=== PATIENT | female | born 1950 | race Caucasian/White ===

== ENCOUNTER → 2017-07-18 09:24 | Outpatient (CLI) | payer OTHER, SELFPAY ==
[2017-07-18 09:59] LABS: Add Manual Diff / Slide Review NO; Basophils Percent Auto 0.9 % (0-2); Hematocrit 46.4 % (36-46); Lymphocytes Percent Auto 24.4 % (25-40); Mean Corpuscular HGB Conc 34.5 % (30-36); Mean Corpuscular Hemoglobin 33.3 PG (26-34); Mean Corpuscular Volume 96.6 fL (80-100); Monocytes Percent Auto 13.8 % (3-14); Neutrophils Absolute Auto 4700 /uL (3000-5900); Neutrophils Percent Auto 58.9 % (50-75); Platelet Count 193 X10^3/uL (150-400); Red Cell Distribution Width 13.3 % (11.6-14.8); White Blood Cell Count 7.9 X10^3/uL (4.5-11.0)
[2017-07-18 10:28] LABS: HEMOLYSIS < 15 (0-50); Iron 214 ug/dL (37-170)
[2017-07-18 10:38] LABS: Percent Iron Saturation 49 % (15-50); Total Iron Binding Capacity 433 ug/mL (265-497); Transferrin 342 mg/dL (206-381)
[2017-07-18 10:44] LABS: Free T3, Triiodothyronine Free 3.74 pg/mL (2.77-5.27); Free T4, Direct Thyroxine 0.57 ng/dL (0.78-2.19)
[2017-07-18 10:58] LABS: Thyroid Stimulating Hormone 4.39 uIU/mL (0.47-4.68)
[2017-07-18 11:29] LABS: Ferritin 71.8 ng/mL (11.1-264)
[2017-07-18 13:01] LABS: Erythrocyte Sedimentation Rate 4 MM/HR (0-20)
== END ==
PROVIDERS: PCP Internal Medicine; Visit Provider Physician Assistant Medical
DX: L65.0 Telogen effluvium (principal); L40.8 Other psoriasis; L81.0 Postinflammatory hyperpigmentation
CPT/HCPCS: 36415; 82728; 83540; 83550; 84439; 84443; 84481; 85025; 85651

== ENCOUNTER → 2018-03-02 11:27 | Outpatient (CLI) | payer OTHER, SELFPAY ==
--- NOTE | 2018-03-02 | DI.MG.S_ITS ---
BILATERAL DIGITAL SCREENING MAMMOGRAM 3D/2D WITH CAD: 03/02/2018 CLINICAL: Routine screening. Family history of breast cancer. Baseline exam. Comparison is made to exam dated: 08/17/2012 mammogram - [facility]. The tissue of both breasts is predominantly fatty. Current study was also evaluated with a Computer Aided Detection (CAD) system. There is 0.3 cm oval equal density focal asymmetry with a circumscribed margin in the right breast at 6 o'clock anterior depth. No other significant masses, calcifications, or other findings are seen in either breast. IMPRESSION: INCOMPLETE: NEEDS ADDITIONAL IMAGING EVALUATION The 0.3 cm oval equal density focal asymmetry in the right breast is indeterminate. Mediolateral and spot compression views as well as additional views with possible ultrasound are recommended. This exam was interpreted at Station ID: [id number]. NOTE: For mammograms, a report in lay terms will be sent to the patient. Approximately 15% of breast malignancies will not be visualized mammographically. In the management of a palpable breast mass, a negative mammogram must not discourage biopsy of a clinically suspicious lesion. Electronically Signed By: Shawn ibarra/fritz:03/08/2018 10:56:01 letter sent: Additional Imaging Needed ACR BI-RADS Category 0: Incomplete 3340F
[2018-03-02 12:21] LABS: Alanine Aminotransferase 26 IU/L (9-52); Albumin 4.2 g/dL (3.5-5.0); Albumin Globulin Ratio 1.3 (1.0-2.8); Alkaline Phosphatase 84 U/L (38-126); Aspartate Aminotransferase 37 IU/L (14-36); BUN Creatinine Ratio 23.8 (6-22); Bilirubin Total 0.7 mg/dL (0.2-1.3); Blood Urea Nitrogen 19 mg/dL (7-17); Calcium 9.7 mg/dL (8.4-10.2); Carbon Dioxide 29 mmol/L (22-32); Chloride 101 mmol/L (98-107); Cholesterol 128 mg/dL (140-199); Estimated Glomerular Filt Rate > 60.0 mL/min (>60); Globulin 3.2 g/dL (1.7-4.1); Glucose 106 mg/dL (80-110); HDL Cholesterol 64 mg/dL (40-60); HEMOLYSIS 25 (0-50); LDL Cholesterol Calculated 40 mg/dL (<100); Potassium 3.6 mmol/L (3.4-5.1); Sodium 141 mmol/L (137-145); Total Protein 7.4 g/dL (6.3-8.2); Triglycerides 122 mg/dL (35-150)
[2018-03-02 13:13] LABS: Hep C Virus Ab w/Reflex Quant NEGATIVE s/c (NEGATIVE)
== END ==
PROVIDERS: PCP Internal Medicine; Visit Provider Internal Medicine
DX: Z12.31 Encounter for screening mammogram for malignant neoplasm of breast (principal); Z80.3 Family history of malignant neoplasm of breast; Z00.00 Encounter for general adult medical examination without abnormal findings; I10 Essential (primary) hypertension
CPT/HCPCS: 36415; 77063; 77067; 80053; 80061; 86803

== ENCOUNTER → 2018-04-11 12:56 | Outpatient (CLI) | payer OTHER, SELFPAY ==
--- NOTE | 2018-04-11 | DI.MG.S_ITS ---
UNILATERAL RIGHT DIGITAL DIAGNOSTIC MAMMOGRAM 3D/2D WITH ADDITIONAL VIEWS: 04/11/2018 CLINICAL: Additional evaluation requested from prior study. Comparison is made to exams dated: 03/02/2018 mammogram - [facility] and 08/17/2012 mammogram - [facility]. The tissue of right breast is predominantly fatty. There is a 3 mm oval equal density asymmetry with a circumscribed margin in the right breast anterior depth central to the nipple seen on the craniocaudal view only. This is seen in additional views. No other significant masses or calcifications are seen in the breast. There has been no significant interval change. IMPRESSION: INCOMPLETE: NEEDS ADDITIONAL IMAGING EVALUATION The 3 mm oval equal density asymmetry in the right breast likely represents fibroglandular tissue and is indeterminate. Ultrasound was performed immediately following this exam. A follow-up mammogram in 6 months is recommended to demonstrate stability. This exam was interpreted at Station ID: [id number]. NOTE: For mammograms, a report in lay terms will be sent to the patient. Approximately 15% of breast malignancies will not be visualized mammographically. In the management of a palpable breast mass, a negative mammogram must not discourage biopsy of a clinically suspicious lesion. Electronically Signed By: Ama armijo/fritz:04/11/2018 18:54:49 ACR BI-RADS Category 0: Incomplete [id number]
--- NOTE | 2018-04-11 | DI.US.S_ITS ---
LIMITED ULTRASOUND OF RIGHT BREAST: 04/11/2018 CLINICAL: Patient returns today to evaluate a density in the right breast. Comparison is made to exams dated: 04/11/2018 mammogram, 03/02/2018 mammogram - [facility], and 08/17/2012 mammogram - [facility]. Ultrasound of the right breast 5-7 o'clock region was performed. No abnormalities were seen sonographically in the right breast. No sonographic abnormalities to correspond to mammogram. IMPRESSION: PROBABLY BENIGN Mammographic finding likely represents normal glandular tissue. A follow-up mammogram in 6 months is recommended to demonstrate stability. This exam was interpreted at Station ID: [id number]. Electronically Signed By: Ama armijo/fritz:04/11/2018 18:58:27 letter sent: Followup Recommended Ultrasound BI-RADS: 3 Probably benign
== END ==
PROVIDERS: PCP Internal Medicine; Visit Provider Internal Medicine
DX: R92.8 Other abnormal and inconclusive findings on diagnostic imaging of breast (principal); N64.89 Other specified disorders of breast; M85.851 Other specified disorders of bone density and structure, right thigh; Z78.0 Asymptomatic menopausal state; F17.200 Nicotine dependence, unspecified, uncomplicated
CPT/HCPCS: 76642; 77065; 77080; G0279

== ENCOUNTER → 2019-03-12 10:03 | Outpatient (CLI) | payer OTHER, SELFPAY ==
--- NOTE | 2019-03-12 | DI.MG.S_ITS ---
BILATERAL DIGITAL DIAGNOSTIC MAMMOGRAM 3D/2D: 03/12/2019 CLINICAL: Late short term follow up, due bilateral. Comparison is made to exams dated: 04/11/2018 mammogram and 03/02/2018 mammogram - [facility]. The tissue of both breasts is predominantly fatty. There is a 3 mm oval equal density asymmetry with a circumscribed margin in the right breast anterior depth central to the nipple seen on the craniocaudal view only has not significantly changed. A possible correlate is seen in the inferior right breast on the lateral view. No other significant masses, calcifications, or other findings are seen in either breast. IMPRESSION: PROBABLY BENIGN The 3 mm oval equal density asymmetry in the right breast has remained stable for one year and is probably benign. No sonographic correlate seen on prior evaluation. A follow-up mammogram in 12 months is recommended. This exam was interpreted at Station ID: [id number]. NOTE: For mammograms, a report in lay terms will be sent to the patient. Approximately 15% of breast malignancies will not be visualized mammographically. In the management of a palpable breast mass, a negative mammogram must not discourage biopsy of a clinically suspicious lesion. Electronically Signed By: Alec Lan M.D. aty/:03/12/2019 10:51:58 letter sent: Followup Recommended ACR BI-RADS Category 3: Probably benign [id number]
== END ==
PROVIDERS: PCP Internal Medicine; Visit Provider Internal Medicine
DX: R92.8 Other abnormal and inconclusive findings on diagnostic imaging of breast (principal); N64.89 Other specified disorders of breast
CPT/HCPCS: 77066; G0279

== ENCOUNTER → 2020-06-09 13:08 | Outpatient (CLI) | payer OTHER, SELFPAY ==
--- NOTE | 2020-06-09 | DI.MRI.S_ITS ---
PROCEDURE: MR LUMBAR SPINE WO CON INDICATIONS: SPINAL STENOSIS, LUMBAR REGION TECHNIQUE: Noncontrast sagittal T1 spin echo and T2 fast echo, sagittal STIR, axial T1 and T2 fast spin echo through the lumbar spine. In cases with scoliosis, additional coronal T2 fast spin echo may be performed. COMPARISON: None. FINDINGS: Image quality: Excellent. Alignment and Curvature: Trace retrolisthesis of L2 on L3. Bone Marrow: Marrow is of normal overall signal. No acute vertebral body compression fractures. Spinal Cord: Conus medullaris terminates at the L1-L2 level. Visualized cord demonstrates normal signal and size. Paraspinous Soft Tissues: No paravertebral masses. Discs: [id number] desiccation is present from L3-4 through L5-S1, moderate at L2-3. L1-L2: Mild disc bulge without spinal stenosis or foraminal narrowing. Mild facet and ligamentum flavum hypertrophy as well as epidural lipomatosis. L2-L3: Mild disc bulge with minimal canal narrowing. Mild bilateral foraminal narrowing with facet and ligamentum flavum hypertrophy. Mild epidural lipomatosis. L3-L4: Mild disc bulge with minimal to mild canal narrowing. Qjlb-si-[id number] bilateral foraminal narrowing with facet and ligamentum flavum hypertrophy. Epidural lipomatosis is present. L4-L5: Mild disc bulge with mild spinal stenosis. Mild to moderate bilateral foraminal narrowing with facet and ligamentum flavum hypertrophy. Epidural lipomatosis is present. L5-S1: Mild disc bulge without spinal stenosis. Moderate left and moderate to severe right foraminal narrowing with facet and ligamentum flavum hypertrophy. IMPRESSION: 1. Multilevel disc bulges. 2. Overall mild to moderate foraminal narrowing with moderate to severe at L5-S1 secondary to facet/ligamentum flavum arthropathy. 3. Multilevel overall minimal to mild spinal stenosis secondary to disc bulge with contributing effect of facet/ligamentum flavum arthropathy as well as epidural lipomatosis. Dictated by: Yumiko Salazar M.D. on 06/09/2020 at 15:46 Approved by: Yumiko Salazar M.D. on 06/09/2020 at 15:54
== END ==
PROVIDERS: PCP Internal Medicine; Referring Provider Internal Medicine; Visit Provider Internal Medicine
DX: M48.07 Spinal stenosis, lumbosacral region (principal); M48.061 Spinal stenosis, lumbar region without neurogenic claudication; M51.26 Other intervertebral disc displacement, lumbar region; M51.27 Other intervertebral disc displacement, lumbosacral region
CPT/HCPCS: 72148

== ENCOUNTER → 2020-06-17 12:43 | Outpatient (CLI) | payer OTHER, SELFPAY ==
--- NOTE | 2020-06-17 | DI.MG.S_ITS ---
BILATERAL DIGITAL DIAGNOSTIC MAMMOGRAM 3D/2D SHORT-TERM FOLLOW-UP: 06/17/2020 CLINICAL: Short term follow up of the right breast, due for bilateral imaging. Comparison is made to exams dated: 03/12/2019 mammogram, 04/11/2018 mammogram, and 03/02/2018 mammogram - [facility]. The tissue of both breasts is predominantly fatty. There is a stable 3 mm oval asymmetry in the right breast at 6 o'clock anterior depth. No other significant masses, calcifications, or other findings are seen in either breast. Mammograms are otherwise stable. IMPRESSION: BENIGN The stable 3 mm oval asymmetry in the right breast is possilby a lymph node, has been stable for over two years and is therfore benign. There is no mammographic evidence of malignancy. Return to annual mammogram screening schedule is recommended. Findings and recommendations were conveyed to the patient at time of exam. This exam was interpreted at Station ID: [id number]. NOTE: For mammograms, a report in lay terms will be sent to the patient. Approximately 15% of breast malignancies will not be visualized mammographically. In the management of a palpable breast mass, a negative mammogram must not discourage biopsy of a clinically suspicious lesion. Electronically Signed By: Ama armijo/:06/17/2020 13:28:50 letter sent: Normal Exam ACR BI-RADS Category 2: Benign Finding(s) 3342F
--- NOTE | 2020-06-17 13:12 | DI.RAD.S_ITS ---
PROCEDURE: XR LUMBAR SPINE MIN 4V INDICATIONS: BACK PAIN TECHNIQUE: 5 views of the lumbar spine were acquired, including bilateral oblique views. COMPARISON: None. FINDINGS: Bones: No fracture. Multilevel spondylosis/endplate changes. Diffuse facet arthropathy. Grade 1 anterolisthesis of L4 on L5. Mild narrowing of the L2-L3 and L5-S1 disc space. Remaining disc spaces appear preserved. Soft tissues: Nonspecific 5 mm calcification projecting in the left abdomen at the level of L3-L4 Oblique images: No pars defects. IMPRESSION: Lumbar spondylosis as above, and grade 1 anterolisthesis of L4 on L5. Diffuse facet arthropathy. Dictated by: Paolo New M.D. on 06/17/2020 at 14:37 Approved by: Paolo New M.D. on 06/17/2020 at 14:39
== END ==
PROVIDERS: PCP Internal Medicine; Referring Provider Physical Medicine & Rehabilitation; Visit Provider Internal Medicine
DX: R92.8 Other abnormal and inconclusive findings on diagnostic imaging of breast (principal); M47.816 Spondylosis without myelopathy or radiculopathy, lumbar region; M51.26 Other intervertebral disc displacement, lumbar region
CPT/HCPCS: 72110; 77066; G0279

== ENCOUNTER → 2020-06-29 12:51 | Outpatient (CLI) | payer OTHER, SELFPAY ==
[2020-06-29 15:03] LABS: COVID19 -Nasal RAPID Negative (Negative)
== END ==
PROVIDERS: PCP Internal Medicine; Visit Provider Physical Medicine & Rehabilitation
DX: Z20.822 Contact with and (suspected) exposure to COVID-19 (principal)
CPT/HCPCS: 87635; C9803

== ENCOUNTER 2020-06-30 12:55 | Outpatient (CLI) | payer OTHER, SELFPAY ==
[2020-06-30] VITALS (9 sets, daily range): BP systolic 95–137; BP diastolic 53–71; PULSE 69–85; RESP 10–23; TEMP 36.2; O2SAT 93–97
--- NOTE | 2020-06-30 13:02 | DI.RAD.S_ITS ---
PROCEDURE: PAIN L/SI FACET INJ/BLK 1STL INDICATIONS: SPONDYLOSIS COMPARISON: [facility], CR, XR LUMBAR SPINE MIN 4V, 06/17/2020, 13:12. FINDINGS: Fluoroscopic spot filming was performed to verify placement of spinal needles at the right L3-L4, L4-L5, and L5-S1 level(s), as labeled on the films. Appropriate location(s) of the needle tip(s) was confirmed by injection of iodinated contrast. IMPRESSION: Intraprocedural examination within normal limits. Dictated by: Joseph Mcnamara M.D. on 06/30/2020 at 13:23 Approved by: Joseph Mcnamara M.D. on 06/30/2020 at 13:24
[2020-06-30] MEDS: fentaNYL 100 MCG/2 ML INJ 50 MCG IV (13:33)
[2020-06-30] MEDS: MIDAZOLAM 5 MG/5 ML VIAL IV (13:33)
[2020-06-30] MEDS: IOPAMIDOL 15 ML VIAL 3 ML INJ (13:36)
[2020-06-30] MEDS: BETAMETHASONE 30 MG/5 ML MDV 12 MG INJ (13:37)
[2020-06-30] MEDS: LIDOCAINE 1% 20 ML 10 ML INJ (13:37)
[2020-06-30] MEDS: BUPIVACAINE 0.5% (PF) VIAL 5 ML INJ (13:37)
--- NOTE | 2020-06-30 13:49 | P.PCN_ITS ---
Date/Time/Diagnoses Date of procedure: 06/30/20 Time of procedure: 13:49 Pre-procedure diagnosis: 1. FACET ARTHROPATHY, 2. AXIAL LBP, 3. MULTILEVEL DDD Post-procedure diagnosis: same Procedure Notes Procedure: 1. FLUOROSCOPICALLY GUIDED CONTRAST CONTROLLED FACET JOINT INJECTIONS RIGHT L3/4, L4/5, L5/S1 Indications: Meghan is referred by Dr. Knight for treatment of Axial LBP Physician: Jong Jhaveri Total Fluoroscopy time (seconds): 8 Total sedation minutes: 12 Complications: none Procedure in detail & Post-procedure care: FINDINGS Multilevel Facet Arthropathy with Clinically significant axial LBP DESCRIPTION OF PROCEDURE Fluoroscopically guided, contrast-controlled right L3/4, L4/5, L5/S1 facet joint injections. Following review of allergy and review of potential side effects and complications, including, but not necessarily limited to, infection, allergic reaction, local tissue breakdown, stroke, temporary or permanent nerve injury, paralysis, and possible , the patient indicated that the patient understood and agreed to proceed. An informed consent document was signed by the patient, witnessed by a nurse, and placed in the patient's chart. Additionally, other treatment options including medications, modalities, and physical therapy were reviewed with the patient. After review of previous anaesthesic history and IV conscious sedation the patie nt was deemed safe to proceed with today?s procedure with IV conscious sedation as ASA class II designation. Safety time-out was performed to confirm patient ID, procedure to be performed and site of procedure. IV sedation was accomplished with a combination of 2mg of Versed and 50mcg of Fentanyl was administered by the RN after DO order, titrated to patient comfort during the course of the procedure while the patient remained responsive to all verbal commands. In the prone position, following sterile prep and drape of the lumbar region, the posterior aspect of the right L3/4, L4/5, L5/S1 facet joints were identified fluoroscopically. The skin was anesthetized via a 25-gauge 1.5-inch needle with 1% lidocaine solution into the corresponding facet joints. At this point, a 22- gauge 3.5-inch spinal needle was atraumatically introduced and advanced under fluoroscopic guidance into the corresponding facet joints. Following negative aspiration, injections of approximately 0.2-cc of Isovue 200 confirmed interarticular placement without vascular uptake. Radiological data, including multiple fluoroscopic views of the lumbosacral spine, reveal a spinal needle at the right L3/4, L4/5, L5/S1 facet joints. Subsequent views show flow of contrast material both superiorly and inferiorly within the joint space without vascular or intrathecal uptake. At this point, a total of 0.5cc including a mixture of 0.25cc Marcaine and 0.25cc betamethasone was injected without complication into each of the corresponding facet joints. The procedure tolerated the procedure well without signs or symptoms of complications prior to transfer to the recovery area continued monitoring without incident. The patient was then transferred to the recovery area where they were observed for an appropriate period of time after the injection. The patient reported a VAS score of 7 prior to the procedure and a post-procedure VAS of 0. POST OP INSTRUCTIONS The patient was provided a Pain Log to continue to record their response to the target-specific procedure prior to follow-up visit with their referring physician. Additionally, specific post-injection care instructions and a contact number to our office were provided if concerns arise regarding possible complications associated with the procedure are suspected.
== END 2020-06-30 14:11 | disposition home or self-care (01) ==
LOC: RAD 13:02
PROVIDERS: PCP Internal Medicine; Referring Provider Physical Medicine & Rehabilitation; Visit Provider Physical Medicine & Rehabilitation
DX: M47.816 Spondylosis without myelopathy or radiculopathy, lumbar region (principal); M47.817 Spondylosis without myelopathy or radiculopathy, lumbosacral region; M51.36 Other intervertebral disc degeneration, lumbar region; M51.37 Other intervertebral disc degeneration, lumbosacral region; M54.5 Low back pain
CPT/HCPCS: 64493; 64494; 64495; 99152; J0702; J2250; J3010

== ENCOUNTER → 2020-10-12 08:04 | Outpatient (CLI) | payer OTHER, SELFPAY ==
[2020-10-12 12:54] LABS: COVID19 -Nasal RAPID Negative (Negative)
== END ==
PROVIDERS: PCP Internal Medicine; Visit Provider Physical Medicine & Rehabilitation
DX: Z20.822 Contact with and (suspected) exposure to COVID-19 (principal)
CPT/HCPCS: 87635; C9803

== ENCOUNTER 2020-10-13 09:42 | Outpatient (CLI) | payer OTHER, SELFPAY ==
[2020-10-13] VITALS (7 sets, daily range): BP systolic 118–140; BP diastolic 61–79; PULSE 87–98; RESP 11–21; TEMP 37.1; O2SAT 96–98
--- NOTE | 2020-10-13 09:43 | DI.RAD.S_ITS ---
PROCEDURE: PAIN L/S TRANSFORAMINAL INJECT INDICATIONS: SPONDYLOSIS COMPARISON: [facility], , PAIN L/SI FACET INJ/BLK 1STL, 06/30/2020, 13:39. FINDINGS: Fluoroscopic spot filming was performed to verify placement of a spinal needle at the L4-L5 level, as labeled on the films. Appropriate location of the needle tip was confirmed by injection of iodinated contrast. IMPRESSION: Intraprocedural examination within normal limits. Dictated by: Joseph Mcnamara M.D. on 10/13/2020 at 11:10 Approved by: Joseph Mcnamara M.D. on 10/13/2020 at 11:10
[2020-10-13] MEDS: MIDAZOLAM 5 MG/5 ML VIAL IV (10:25)
[2020-10-13] MEDS: BUPIVACAINE 0.25% (PF) VIAL 2 ML INJ (10:38)
[2020-10-13] MEDS: IOPAMIDOL 15 ML VIAL 3 ML INJ (10:38)
[2020-10-13] MEDS: BETAMETHASONE 30 MG/5 ML MDV 6 MG INJ (10:39)
[2020-10-13] MEDS: DEXAMETHASONE 10 MG/ML VIAL 20 MG INJ (10:39)
--- NOTE | 2020-10-13 10:49 | P.PCN_ITS ---
Date/Time/Diagnoses Date of procedure: 10/13/20 Time of procedure: 10:49 Pre-procedure diagnosis: 1. FORAMINAL STENOSIS WITH LE SYMPTOMS Post-procedure diagnosis: same Procedure Notes Procedure: 1. FLUOROSCOPICALLY GUIDED CONTRAST CONTROLLED TRANSFORAMINAL EPIDURAL STEROID INJECTION - RIGHT L4/5 TFESI Indications: Meghan is referred by Dr. Knight for treatment of Foraminal Stenosis with Right LE Symptoms Physician: Jong Jhaveri Total Fluoroscopy time (seconds): 10 Total sedation minutes: 15 Complications: none Procedure in detail & Post-procedure care: FINDINGS Foraminal Nerve Root Compression secondary to disc disease and facet hypertrophy DESCRIPTION OF PROCEDURE Following review of allergy and review of potential side effects and complications, including, but not necessarily limited to, infection, allergic reaction, local tissue breakdown, stroke, temporary or permanent nerve injury, paralysis, and possible , the patient indicated that the patient understood and agreed to proceed. An informed consent document was signed by the patient, witnessed by a nurse, and placed in the patient's chart. Additionally, other treatment options including medications, modalities, and physical therapy were reviewed with the patient. After review of previous anaesthesic history and IV conscious sedation the patient was deemed safe to proceed with today?s procedure with IV conscious sedation as ASA class II designation. Safety time-out was performed to confirm patient ID, procedure to be performed and site of procedure. IV sedation was accomplished with a combination of 3mg of Versed was administered by the RN after DO order, titrated to patient comfort during the course of the procedure while the patient remained responsive to all verbal commands. In the prone position following sterile prep and drape of the lumbar region, the right L4/5 posterior neuroforamen was identified fluoroscopically. The skin was anesthetized via a 25-gauge 1.5-inch needle with 1% lidocaine solution. At this point, a 25-gauge 3.5-inch spinal needle was atraumatically introduced and advanced under fluoroscopic guidance through the posterior right L4/5 neuroforamen to approximately the anterior aspect of the canal. Depth was confirmed on lateral view. Following negative aspiration, injection of approximately 1.5cc of Isovue 200 under live fluoroscopy in the AP view confi rmed excellent flow along the nerve root, into the epidural space without vascular or intrathecal uptake observed Radiological data, including multiple fluoroscopic views of the lumbosacral spine, reveal a spinal needle at the right L4/5 posterior neuroforamen. Subsequent views show flow of contrast material flowing superiorly and inferiorly along the nerve root confirming epidural flow. Subsequently, a test dose of 1.5 cc of 1% lidocaine solution was administered and patient was observed for two minutes for signs or symptoms of complications, including abdominal pain, shortness of breath, bilateral upper or lower extremity weakness, nausea and vomiting, prior to steroid injection. At this point, a total of 3cc or 20mg of dexamethasone and 6mg of betamethasone was injected without incident. The procedure tolerated the procedure well without signs or symptoms of complications prior to transfer to the recovery area continued monitoring without incident. The patient was then transferred to the recovery area where they were observed for an appropriate time after the injection. The patient reported a VAS score of 7 prior to the procedure and a post- procedure VAS of 0. POST OP INSTRUCTIONS The patient was provided a Pain Log to continue to record their response to the target-specific procedure prior to follow-up visit with their referring phy sician. Additionally, specific post-injection care instructions and a contact number to our office were provided if concerns arise regarding possible complications associated with the procedure are suspected.
== END 2020-10-13 11:00 | disposition home or self-care (01) ==
LOC: RAD 09:43
PROVIDERS: PCP Internal Medicine; Referring Provider Physical Medicine & Rehabilitation; Visit Provider Physical Medicine & Rehabilitation
DX: M48.061 Spinal stenosis, lumbar region without neurogenic claudication (principal); M51.16 Intervertebral disc disorders with radiculopathy, lumbar region
CPT/HCPCS: 64483; 99152; J0702; J1100; J2250; J3010

== ENCOUNTER → 2021-02-22 11:40 | Outpatient (CLI) | payer OTHER, SELFPAY ==
[2021-02-22 14:09] LABS: COVID19 -Nasal RAPID Negative (Negative)
== END ==
PROVIDERS: PCP Internal Medicine; Referring Provider Physical Medicine & Rehabilitation; Visit Provider Physical Medicine & Rehabilitation
DX: Z20.822 Contact with and (suspected) exposure to COVID-19 (principal)
CPT/HCPCS: 87635; C9803

== ENCOUNTER 2021-02-23 09:08 | Outpatient (CLI) | payer OTHER, SELFPAY ==
[2021-02-23] VITALS (11 sets, daily range): BP systolic 94–140; BP diastolic 46–84; PULSE 70–76; RESP 10–21; TEMP 36.7; O2SAT 93–98
--- NOTE | 2021-02-23 09:10 | DI.RAD.S_ITS ---
PROCEDURE: PAIN L/SI FACET INJ/BLK 1STL INDICATIONS: SPONDYLOSIS COMPARISON: [facility], , PAIN L/SI FACET INJ/BLK 1STL, 06/30/2020, 13:39. FINDINGS: Fluoroscopic spot filming was performed to verify placement of spinal needles at the right L4-L5 and L5-S1 facets level(s), as labeled on the films. Appropriate location(s) of the needle tip(s) was confirmed by injection of iodinated contrast. IMPRESSION: Access needles localized to the the right L4-L5 and L5-S1 facet joints. Dictated by: Kelli Braden MD, PhD on 02/23/2021 at 16:03 Approved by: Kelli Braden MD, PhD on 02/23/2021 at 16:04
--- NOTE | 2021-02-23 10:12 | DI.RAD.S_ITS ---
PROCEDURE: PAIN SI JOINT INJECTION INDICATIONS: SACROILIAC JOINT DISORDER COMPARISON: None. FINDINGS: Fluoroscopic spot filming was performed to verify placement of spinal needles at the inferior margin of the right sacroiliac joint level(s), as labeled on the films. Appropriate location(s) of the needle tip(s) was confirmed by injection of iodinated contrast. IMPRESSION: Access needle localizes to the inferior margin of the right sacroiliac joint. Dictated by: Kelli Braden MD, PhD on 02/23/2021 at 15:54 Approved by: Kelli Braden MD, PhD on 02/23/2021 at 15:58
[2021-02-23] MEDS: fentaNYL 100 MCG/2 ML INJ 50 MCG IV (10:22)
[2021-02-23] MEDS: IOPAMIDOL 15 ML VIAL 3 ML INJ (10:27)
[2021-02-23] MEDS: BETAMETHASONE 30 MG/5 ML MDV 12 MG INJ (10:28)
[2021-02-23] MEDS: BUPIVACAINE 0.5% (PF) VIAL 5 ML INJ (10:28)
[2021-02-23] MEDS: MIDAZOLAM 5 MG/5 ML VIAL IV (10:32)
--- NOTE | 2021-02-23 10:43 | P.PCN_ITS ---
Date/Time/Diagnoses Date of procedure: 02/23/21 Time of procedure: 10:43 Pre-procedure diagnosis: 1. FACET ARTHROPATHY, 2. AXIAL LBP, 3. MULTILEVEL DDD Post-procedure diagnosis: same Procedure Notes Procedure: 1. FLUOROSCOPICALLY GUIDED CONTRAST CONTROLLED FACET JOINT INJECTIONS RIGHT L4/5, L5/S1 Indications: Meghan is referred by Dr. Guzman for treatment of Axial LBP Physician: Jong Jhaveri Total Fluoroscopy time (seconds): 11 Total sedation minutes: 16 Complications: none Procedure in detail & Post-procedure care: FINDINGS Multilevel Facet Arthropathy with Clinically significant axial LBP DESCRIPTION OF PROCEDURE Fluoroscopically guided, contrast-controlled right L4/5, L5/S1 facet joint injections. Following review of allergy and review of potential side effects and complications, including, but not necessarily limited to, infection, allergic reaction, local tissue breakdown, stroke, temporary or permanent nerve injury, paralysis, and possible , the patient indicated that the patient understood and agreed to proceed. An informed consent document was signed by the patient, witnessed by a nurse, and placed in the patient's chart. Additionally, other treatment options including medications, modalities, and physical therapy were reviewed with the patient. After review of previous anaesthesic history and IV conscious sedation the patient was deemed safe to proceed with today?s procedure with IV conscious sedation as ASA class II designation. Safety time-out was performed to confirm patient ID, procedure to be performed and site of procedure. IV sedation was accomplished with a combination of 3mg of Versed and 50mcg of Fentanyl was administered by the RN after DO order, titrated to patient comfort during the course of the procedure while the patient remained responsive to all verbal commands. In the prone position, following sterile prep and drape of the lumbar region, the posterior aspect of the right L4/5, L5/S1 facet joints were identified fluoroscopically. The skin was anesthetized via a 25-gauge 1.5-inch needle with 1% lidocaine solution into the corresponding facet joints. At this point, a 22- gauge 3.5-inch spinal needle was atraumatically introduced and advanced under fluoroscopic guidance into the corresponding facet joints. Following negative aspiration, injections of approximately 0.2-cc of Isovue 200 confirmed interarticular placement without vascular uptake. Radiological data, including multiple fluoroscopic views of the lumbosacral spine, reveal a spinal needle at the right L4/5, L5/S1 facet joints. Subsequent views show flow of contrast material both superiorly and inferiorly within the joint space without vascular or intrathecal uptake. At this point, a total of 0.5cc including a mixture of 0.25cc Marcaine and 0.25cc betamethasone was injected without complication into each of the corresponding facet joints. The procedure tolerated the procedure well without signs or symptoms of comp lications prior to transfer to the recovery area continued monitoring without incident. The patient was then transferred to the recovery area where they were observed for an appropriate period of time after the injection. The patient reported a VAS score of 7 prior to the procedure and a post-procedure VAS of 0. POST OP INSTRUCTIONS The patient was provided a Pain Log to continue to record their response to the target-specific procedure prior to follow-up visit with their referring physician. Additionally, specific post-injection care instructions and a contact number to our office were provided if concerns arise regarding possible complications associated with the procedure are suspected.
--- NOTE | 2021-02-23 10:45 | PM.PROC.IR.1 ---
Date/Time/Diagnoses Date of procedure: 02/23/21 Time of procedure: 10:45 Pre-procedure diagnosis: Sacroiliac joint pain/DJD Post-procedure diagnosis: same Procedure Notes Procedure: Fluoroscopically guided contrast controlled right sacroiliac joint injection Indications: Meghan is referred by Dr. Guzman for treatment of right sacroiliac joint DJD Physician: Jong Jhaveri Total Fluoroscopy time (seconds): 11 Total sedation minutes: 16 Complications: none Procedure in detail & Post-procedure care: DESCRIPTION OF PROCEDURE Fluoroscopically guided, contrast controlled right sacroiliac joint injection Following review of allergies and review of potential side effects and complications, including, but not necessarily limited to, infection, allergic reaction, local tissue breakdown, temporary as well as permanent nerve injury, paralysis, stroke and possible , the patient indicated that they understood and agreed to proceed. An informed consent was signed by the patient, witnessed by a nurse, and placed in the patient's chart. Additionally, other treatment options including modalities, medications, and physical therapy were reviewed with the patient. After review of previous anaesthesic history and IV conscious sedation the patient was deemed safe to proceed with today?s procedure with IV conscious sedation as ASA class II designation. Safety time-out was performed to confirm patient ID, procedure to be performed and site of procedure. IV sedation was accomplished with a combination of 3mg of Versed and 50mcg of Fentanyl was administered by the RN after DO order, titrated to patient comfort during the course of the procedure while the patient remained responsive to all verbal commands In the prone position following sterile prep and drape of the pelvic region, the hyper lucency on in the inferior aspect of the sacroiliac joint was identified fluoroscopically the skin was anesthetized be a 25 gauge 1 eventual with approximately 2 cc of 1% lidocaine solution. At this point, a 22 gauge 3 in spinal needle was atraumatically introduced and advanced under fluoroscopic guidance into the inferior aspect of the right sacroiliac joint. Following negative aspiration, approximately 0.3cc of Isovue-300 was injected confirming intra-articular placement without vascular uptake. Radiographic data, including multiple fluoroscopic views of the pelvis, reveals a spinal needle in the sacroiliac joint hyper lucent zone. Subsequent view show flow contrast tear superiorly and inferiorly within the joint capsule without vascular intrathecal uptake. At this point a total of 1 of 0.5% Marcaine was combined with 1cc of 6 mg of betamethasone was injected without incident. The procedure tolerated the procedure well without signs or symptoms of complications prior to transfer to the recovery area continued monitoring without incident. The patient was then transferred to the recovery area with a bur observed for an appropriate time after the injection. The patient reverted a vas score of 7 prior to the procedure and post-procedure vas of 1. POSTOP INSTRUCTIONS The patient was provided with a pain like to continue to record the patient's response to the target specific procedure prior to the patient's follow-up visit with the referring physician. Additionally, specific post injection care instructions and a contact number to our office were provided if concerns arise regarding the possible complications associated with procedure are suspected.
== END 2021-02-23 11:11 | disposition home or self-care (01) ==
PROVIDERS: PCP Internal Medicine; Referring Provider Physical Medicine & Rehabilitation; Visit Provider Physical Medicine & Rehabilitation
DX: M47.816 Spondylosis without myelopathy or radiculopathy, lumbar region (principal); M47.817 Spondylosis without myelopathy or radiculopathy, lumbosacral region; M51.36 Other intervertebral disc degeneration, lumbar region; M51.37 Other intervertebral disc degeneration, lumbosacral region; M53.3 Sacrococcygeal disorders, not elsewhere classified; M46.1 Sacroiliitis, not elsewhere classified
CPT/HCPCS: 27096; 64493; 64494; 99152; J0702; J2250; J3010

== ENCOUNTER → 2021-03-29 10:36 | Outpatient (CLI) | payer OTHER, SELFPAY ==
--- NOTE | 2021-03-29 | DI.US.S_ITS ---
PROCEDURE: US RENAL COMPLETE INDICATIONS: LEFT FLANK PAIN TECHNIQUE: Real-time scanning was performed of the kidneys and bladder, with image documentation. COMPARISON: None. FINDINGS: Kidneys: Kidneys are normal in size. Right kidney measures 10.4 cm long; left kidney measures 10.5 cm long. Right renal cortical thickness is 1.6 cm; left renal cortical thickness is 1.5 cm. Renal cortical echotexture is normal. No hydronephrosis or nephrolithiasis. No suspicious solid mass lesions. Bladder: Pre-void bladder volume is 293 mL. Post-void residual is 0 mL. Pre-void images demonstrate no intraluminal masses or stones. Ureteral jets are not seen. Miscellaneous: No free pelvic fluid. IMPRESSION: No hydronephrosis. Dictated by: Alden Wilson M.D. on 03/29/2021 at 11:42 Approved by: Alden Wilson M.D. on 03/29/2021 at 11:43
== END ==
PROVIDERS: PCP Internal Medicine; Referring Provider Internal Medicine; Visit Provider Internal Medicine
DX: R10.9 Unspecified abdominal pain (principal)
CPT/HCPCS: 76770

== ENCOUNTER → 2021-04-13 11:37 | Outpatient (CLI) | payer OTHER, SELFPAY ==
--- NOTE | 2021-04-13 11:40 | DI.RAD.S_ITS ---
PROCEDURE: XR CERVICAL SPINE 4V OR 5V INDICATIONS: cervical and jaw pain TECHNIQUE: 5 views of the cervical spine acquired. COMPARISON: None. FINDINGS: Bones: No fractures or dislocations to the C7-T1 level. Oblique images demonstrate no bony foraminal stenoses. There is trace anterolisthesis of C4 on C5. Moderate to severe disc space narrowing is present C5-6 and C6-7, minimal to mild throughout the remainder of the cervical spine. Multilevel uncovertebral arthropathy is present. Multilevel moderate to severe foraminal narrowing is present bilaterally most notable from C4-5 through C6-7. Uncovertebral arthropathy is present. Soft tissues: No prevertebral soft tissue swelling. IMPRESSION: Multilevel degenerative changes most severe from C4-5 through C6-7. Dictated by: Yumiko Salazar M.D. on 04/13/2021 at 17:29 Approved by: Yumiko Salazar M.D. on 04/13/2021 at 17:30
== END ==
PROVIDERS: PCP Internal Medicine; Referring Provider Physical Medicine & Rehabilitation; Visit Provider Physical Medicine & Rehabilitation
DX: M47.22 Other spondylosis with radiculopathy, cervical region (principal)
CPT/HCPCS: 72050

== ENCOUNTER → 2021-05-12 10:07 | Outpatient (CLI) | payer OTHER, SELFPAY ==
[2021-05-12 11:21] LABS: COVID19 -Nasal RAPID Negative (Negative)
== END ==
PROVIDERS: PCP Internal Medicine; Visit Provider Physical Medicine & Rehabilitation
DX: Z20.822 Contact with and (suspected) exposure to COVID-19 (principal)
CPT/HCPCS: 87635; C9803

== ENCOUNTER 2021-05-13 07:28 | Outpatient (CLI) | payer OTHER, SELFPAY ==
[2021-05-13] VITALS (11 sets, daily range): BP systolic 112–158; BP diastolic 57–86; PULSE 65–78; RESP 12–22; TEMP 36.3; O2SAT 94–98
--- NOTE | 2021-05-13 07:30 | DI.RAD.S_ITS ---
PROCEDURE: PAIN L/S MED/LAT N RFA INDICATIONS: SPONDYLOSIS COMPARISON: [facility], , PAIN SI JOINT INJECTION, 02/23/2021, 11:35. FINDINGS: Fluoroscopic spot filming was performed to verify placement of spinal needles on the right at the L3, L4, L5, and S1 levels, as labeled on the films. IMPRESSION: Intraprocedural examination within normal limits. Dictated by: Joseph Mcnamara M.D. on 05/13/2021 at 8:52 Approved by: Joseph Mcnamara M.D. on 05/13/2021 at 8:53
[2021-05-13] MEDS: BUPIVACAINE 0.5% (PF) VIAL 5 ML INJ (08:42)
[2021-05-13] MEDS: LIDOCAINE 1% 20 ML INJ (08:43)
[2021-05-13] MEDS: MIDAZOLAM 2 MG/2 ML VIAL 5 MG IV (08:53)
--- NOTE | 2021-05-13 09:12 | P.PCN_ITS ---
Date/Time/Diagnoses Date of procedure: 05/13/21 Time of procedure: 09:12 Pre-procedure diagnosis: 1. RECALCITRANT FACET ARTHROPATHY Post-procedure diagnosis: same Procedure Notes Procedure: 1. RIGHT L3, L4 AND L5 MEDIAL BRANCH RADIOFREQUENCY NEUROTOMY AND RIGHT S1 DORSAL RAMUS BRANCH RADIOFREQUENCY NEUROTOMY Indications: Meghan is referred by Dr. Guzman for treatment of facet arthropathy. Physician: Jong Jhaveri Total Fluoroscopy time (seconds): 14 Total sedation minutes: 30 Complications: none Procedure in detail & Post-procedure care: DESCRIPTION OF PROCEDURE Right L3, L4 and L5 medial branch radiofrequency neurotomy and right S1 dorsal ramus branch radiofrequency neurotomy under fluoroscopy with conscious sedation. The patient is well known to this clinic having undergone previous facet inject ions with good but temporary relief. The patient has experienced appropriate, concordant relief with previous facet and median branch blocks but the patient's pain has been recalcitrant to further conservative measures. Therefore, based upon the patient's relief and persistent symptoms, the patient is considered an appropriate candidate for facet rhizotomy. All of the patient's questions regarding the risks versus benefits of the procedure, including, but not limited to, bleeding, infection, temporary as well as lasting nerve injury, paralysis, stroke, and , as well treatment alternatives were answered to satisfaction. After review of previous anaesthesic history and IV conscious sedation the patient was deemed safe to proceed with today?s procedure with IV conscious sedation as ASA class II designation. Safety time-out was performed to confirm patient ID, procedure to be performed and site of procedure. IV sedation was accomplished with a combination of 2mg of Versed and 50mcg of Fentanyl was administered by the RN after DO order, titrated to patient comfort during the course of the procedure while the patient remained responsive to all verbal commands. After obtaining informed consent, denial of pertinent drug allergies, as well as being made aware of the potential risks of bleeding, infection, spinal cord trauma, paralysis, temporary and permanent nerve damage, seizure, stroke, and possible , the patient was brought to the fluoroscopy suite and positioned prone on the fluoroscopy table. The lumbar region was prepped with Betadine and covered with a fenestrated drape in the usual sterile fashion. Appropriate monitors applied including pulse oximeter, pulse, and blood pressure for regular monitoring throughout the procedure. After local infiltration using 1% lidocaine, under fluoroscopic guidance, a 10- cm RF insulated needle with a 10-mm active tip was positioned parallel to the junction of the right sacral ala and the superior articulating process where the S1 dorsal ramus resides. Needle placement was confirmed with sensory stimulation at 50 Hz, with motor stimulation of .5v on the right which produced local stimulation without radicular component. The stimulation was then increased to 2v with, once again, only local multifidus stimulation without radicular component. This was then followed by two discreet lesions performed at 80 degrees Celsius for 90 seconds each. The needle was then removed and the identical procedure was performed along the length of the right L5 medial branch with motor stimulation at .7v on the right. The identical procedure was once again performed along the length of the right L4 medial branch with motor stimulation of .5v on the right. The identical procedure was once again performed along the length of the right L3 medial branch with motor stimulation of .6v on the right. The patient tolerated the procedure well without signs or symptoms of complications prior to transfer to the recovery area continued monitoring without incident. The patient was then transferred to the recovery area where they were observed for an appropriate period of time after the injection. The patient was then transferred to the recovery area where they were observed for an appropriate period of time after the injection. The patient reported a VAS score of 8 prior to the procedure and a post- procedure VAS of 0. POST OP INSTRUCTIONS The patient was provided a Pain Log to continue to record the patient's response to the target-specific procedure prior to the patient's follow-up visit with the referring physician. Additionally, specific post-injection care instructions and a contact number to our office were provided if concerns arise regarding possible complications associated with the procedure are suspected.
== END 2021-05-13 09:27 | disposition home or self-care (01) ==
LOC: RAD 07:29
PROVIDERS: PCP Internal Medicine; Referring Provider Physical Medicine & Rehabilitation; Visit Provider Physical Medicine & Rehabilitation
DX: M47.816 Spondylosis without myelopathy or radiculopathy, lumbar region (principal); M47.817 Spondylosis without myelopathy or radiculopathy, lumbosacral region
CPT/HCPCS: 64635; 64636; 99152; 99153; J2250; J3010

== ENCOUNTER → 2021-06-18 10:46 | Outpatient (CLI) | payer OTHER, SELFPAY ==
--- NOTE | 2021-06-18 | DI.MG.S_ITS ---
BILATERAL DIGITAL SCREENING MAMMOGRAM 3D/2D WITH CAD: 06/18/2021 CLINICAL: Routine screening. Family history of breast cancer. Comparison is made to exams dated: 06/17/2020 mammogram, 03/12/2019 mammogram, and 03/02/2018 mammogram - [facility]. There are scattered fibroglandular elements in both breasts. Current study was also evaluated with a Computer Aided Detection (CAD) system. No significant masses, calcifications, or other findings are seen in either breast. There has been no significant interval change. IMPRESSION: NEGATIVE There is no mammographic evidence of malignancy. A 1 year screening mammogram is recommended. This exam was interpreted at Station ID: [id number]. NOTE: For mammograms, a report in lay terms will be sent to the patient. Approximately 15% of breast malignancies will not be visualized mammographically. In the management of a palpable breast mass, a negative mammogram must not discourage biopsy of a clinically suspicious lesion. Electronically Signed By: Aleena mendoza/fritz:06/18/2021 12:37:07 letter sent: Normal Exam ACR BI-RADS Category 1: Negative [id number]
== END ==
PROVIDERS: PCP Internal Medicine; Referring Provider Internal Medicine; Visit Provider Internal Medicine
DX: Z12.31 Encounter for screening mammogram for malignant neoplasm of breast (principal); Z80.3 Family history of malignant neoplasm of breast
CPT/HCPCS: 77063; 77067

== ENCOUNTER → 2021-10-11 10:47 | Outpatient (CLI) | payer OTHER, SELFPAY ==
[2021-10-11 11:24] LABS: COVID19 -Nasal RAPID Negative (Negative)
== END ==
PROVIDERS: PCP Internal Medicine; Referring Provider Physical Medicine & Rehabilitation; Visit Provider Physical Medicine & Rehabilitation
DX: Z20.822 Contact with and (suspected) exposure to COVID-19 (principal)
CPT/HCPCS: 87635; C9803

== ENCOUNTER 2021-10-12 12:55 | Outpatient (CLI) | payer OTHER, SELFPAY ==
[2021-10-12] VITALS (8 sets, daily range): BP systolic 99–141; BP diastolic 55–72; PULSE 62–69; RESP 12–20; TEMP 36.2; O2SAT 94–99
--- NOTE | 2021-10-12 12:58 | DI.RAD.S_ITS ---
PROCEDURE: PAIN SI JOINT INJECTION INDICATIONS: SACROILIAC DISORDER COMPARISON: [facility], , PAIN SI JOINT INJECTION, 02/23/2021, 11:35. FINDINGS: On these intraprocedural images, there is a spinal needle seen overlying the inferior aspect of the right sacroiliac joint. Appropriate position of the tip of the needle was confirmed by injection of a small amount of iodinated contrast. IMPRESSION: Successful sacroiliac joint injection. Dictated by: Joseph Mcnamara M.D. on 10/12/2021 at 13:53 Approved by: Joseph Mcnamara M.D. on 10/12/2021 at 13:53
[2021-10-12] MEDS: MIDAZOLAM 2 MG/2 ML VIAL IV (13:47)
[2021-10-12] MEDS: BETAMETHASONE 30 MG/5 ML MDV 12 MG INJ (13:51)
[2021-10-12] MEDS: BUPIVACAINE 0.5% (PF) VIAL 2 ML INJ (13:51)
[2021-10-12] MEDS: IOPAMIDOL 15 ML VIAL 3 ML INJ (13:51)
--- NOTE | 2021-10-12 14:01 | PM.PROC.IR.1 ---
Date/Time/Diagnoses Date of procedure: 10/12/21 Time of procedure: 14:01 Pre-procedure diagnosis: Sacroiliac joint pain/DJD Post-procedure diagnosis: same Procedure Notes Procedure: Fluoroscopically guided contrast controlled right sacroiliac joint injection Indications: Meghan is referred by Dr. Guzman for treatment of right sacroiliac joint DJD Physician: Jong Jhaveri Total Fluoroscopy time (seconds): 6 Total sedation minutes: 9 Complications: none Procedure in detail & Post-procedure care: DESCRIPTION OF PROCEDURE Fluoroscopically guided, contrast controlled right sacroiliac joint injection Following review of allergies and review of potential side effects and complications, including, but not necessarily limited to, infection, allergic reaction, local tissue breakdown, temporary as well as permanent nerve injury, paralysis, stroke and possible , the patient indicated that they understood and agreed to proceed. An informed consent was signed by the patient, witnessed by a nurse, and placed in the patient's chart. Additionally, other treatment options including modalities, medications, and physical therapy were reviewed with the patient. After review of previous anaesthesic history and IV conscious sedation the patient was deemed safe to proceed with today?s procedure with IV conscious sedation as ASA class II designation. Safety time-out was performed to confirm patient ID, procedure to be performed and site of procedure. IV sedation was accomplished with a combination of 2mg of Versed was administered by the RN after DO order, titrated to patient comfort during the course of the procedure while the patient remained responsive to all verbal commands In the prone position following sterile prep and drape of the pelvic region, the hyper lucency on in the inferior aspect of the sacroiliac joint was identified fluoroscopically the skin was anesthetized be a 25 gauge 1 eventual with approximately 2 cc of 1% lidocaine solution. At this point, a 22 gauge 3 in spinal needle was atraumatically introduced and advanced under fluoroscopic guidance into the inferior aspect of the right sacroiliac joint. Following negative aspiration, approximately 0.3cc of Isovue-300 was injected confirming intra-articular placement without vascular uptake. Radiographic data, including multiple fluoroscopic views of the pelvis, reveals a spinal needle in the sacroiliac joint hyper lucent zone. Subsequent view show flow contrast tear superiorly and inferiorly within the joint capsule without vascular intrathecal uptake. At this point a total of 1cc of 0.5% Marcaine was combined with 1cc of 6 mg of betamethasone was injected without incident. The procedure tolerated the procedure well without signs or symptoms of complications prior to transfer to the recovery area continued monitoring without incident. The patient was then transferred to the recovery area with a bur observed for an appropriate time after the injection. The patient reverted a vas score of 7 prior to the procedure and post-procedure vas of 1. POSTOP INSTRUCTIONS The patient was provided with a pain like to continue to record the patient's response to the target specific procedure prior to the patient's follow-up visit with the referring physician. Additionally, specific post injection care instructions and a contact number to our office were provided if concerns arise regarding the possible complications associated with procedure are suspected.
== END 2021-10-12 14:19 | disposition home or self-care (01) ==
LOC: RAD 12:58
PROVIDERS: PCP Internal Medicine; Referring Provider Physical Medicine & Rehabilitation; Visit Provider Physical Medicine & Rehabilitation
DX: M53.3 Sacrococcygeal disorders, not elsewhere classified (principal); M46.1 Sacroiliitis, not elsewhere classified
CPT/HCPCS: 27096; J0702; J2250

== ENCOUNTER 2022-02-03 10:20 | Outpatient (CLI) | payer OTHER, SELFPAY ==
[2022-02-03] VITALS (9 sets, daily range): BP systolic 99–143; BP diastolic 57–85; PULSE 68–74; RESP 12–18; TEMP 36.4; O2SAT 94–100
--- NOTE | 2022-02-03 10:21 | DI.RAD.S_ITS ---
PROCEDURE: PAIN L/S TRANSFORAMINAL INJECT INDICATIONS: SPONDYLOSIS COMPARISON: [facility], , PAIN L/S TRANSFORAMINAL INJECT, 10/13/2020, 10:32. FINDINGS: Fluoroscopic spot filming was performed to verify placement of spinal needle at the L5 foraminal level(s), as labeled on the films. Appropriate location(s) of the needle tip(s) was confirmed by injection of iodinated contrast. IMPRESSION: Needle at the L5 foraminal level for an epidural steroid injection. C-arm fluoroscopy utilized for the procedure. Dictated by: Salty Ortega M.D. on 02/03/2022 at 17:55 Approved by: Salty Ortega M.D. on 02/03/2022 at 17:57
[2022-02-03] MEDS: DEXAMETHASONE 10 MG/ML VIAL 20 MG INJ (11:02)
[2022-02-03] MEDS: MIDAZOLAM 2 MG/2 ML VIAL IV (11:02)
[2022-02-03] MEDS: IOPAMIDOL 15 ML VIAL 3 ML INJ (11:06)
[2022-02-03] MEDS: BETAMETHASONE 30 MG/5 ML MDV 6 MG INJ (11:07)
[2022-02-03] MEDS: BUPIVACAINE 0.25% (PF) VIAL 2 ML SUBCUT (11:07)
--- NOTE | 2022-02-03 11:24 | P.PCN_ITS ---
Date/Time/Diagnoses Date of procedure: 02/03/22 Time of procedure: 11:24 Pre-procedure diagnosis: FORAMINAL STENOSIS WITH LE SYMPTOMS Post-procedure diagnosis: same Procedure Notes Procedure: 1. FLUOROSCOPICALLY GUIDED CONTRAST CONTROLLED TRANSFORAMINAL EPIDURAL STEROID INJECTION - RIGHT L5/S1 TFESI Indications: Meghan is referred by Dr. Guzman for treatment of Foraminal Stenosis with Right LE Symptoms Physician: Jong Jhaveri Total Fluoroscopy time (seconds): 13 Total sedation minutes: 12 Complications: none Procedure in detail & Post-procedure care: FINDINGS Foraminal Nerve Root Compression secondary to disc disease and facet hypertrophy DESCRIPTION OF PROCEDURE Following review of allergy and review of potential side effects and complications, including, but not necessarily limited to, infection, allergic reaction, local tissue breakdown, stroke, temporary or permanent nerve injury, paralysis, and possible , the patient indicated that the patient understood and agreed to proceed. An informed consent document was signed by the patient, witnessed by a nurse, and placed in the patient's chart. Additionally, other treatment options including medications, modalities, and physical therapy were reviewed with the patient. After review of previous anaesthesic history and IV conscious sedation the patient was deemed safe to proceed with today?s procedure with IV conscious sedation as ASA class II designation. Safety time-out was performed to confirm patient ID, procedure to be performed and site of procedure. IV sedation was accomplished with a combination of 2mg of Versed was administered by the RN after DO order, titrated to patient comfort during the course of the procedure while the patient remained responsive to all verbal commands In the prone position following sterile prep and drape of the lumbar region, the right L5/S1 posterior neuroforamen was identified fluoroscopically. The skin was anesthetized via a 25-gauge 1.5-inch needle with 1% lidocaine solution. At this point, a 25-gauge 3.5-inch spinal needle was atraumatically introduced and advanced under fluoroscopic guidance through the posterior right L5/S1 neuroforamen to approximately the anterior aspect of the canal. Depth was confirmed on lateral view. Following negative aspiration, injection of approximately 1.5cc of Isovue 200 under live fluoroscopy in the AP view confirmed excellent flow along the nerve root, into the epidural space without vascular or intrathecal uptake observed Radiological data, including multiple fluoroscopic views of the lumbosacral spine, reveal a spinal needle at the right L5/S1 posterior neuroforamen. Subsequent views show flow of contrast material flowing superiorly and inferiorly along the nerve root confirming epidural flow. Subsequently, a test dose of 1.5 cc of 1% lidocaine solution was administered and patient was observed for two minutes for signs or symptoms of complications, including abdominal pain, shortness of breath, bilateral upper or lower extremi ty weakness, nausea and vomiting, prior to steroid injection. At this point, a total of 3cc or 20mg of dexamethasone and 6mg of betamethasone was injected without incident. The procedure tolerated the procedure well without signs or symptoms of complications prior to transfer to the recovery area continued monitoring without incident. The patient was then transferred to the recovery area where they were observed for an appropriate time after the injection. The patient reported a VAS score of 7 prior to the procedure and a post- procedure VAS of 0. POST OP INSTRUCTIONS The patient was provided a Pain Log to continue to record their response to the target-specific procedure prior to follow-up visit with their referring physician. Additionally, specific post-injection care instructions and a contact number to our office were provided if concerns arise regarding possible complications associated with the procedure are suspected.
== END 2022-02-03 11:34 | disposition home or self-care (01) ==
LOC: RAD 10:20
PROVIDERS: PCP Internal Medicine; Referring Provider Physical Medicine & Rehabilitation; Visit Provider Physical Medicine & Rehabilitation
DX: M48.07 Spinal stenosis, lumbosacral region (principal); M51.17 Intervertebral disc disorders with radiculopathy, lumbosacral region
CPT/HCPCS: 64483; 99152; J0702; J1100; J2250

== ENCOUNTER → 2022-03-04 11:35 | Outpatient (CLI) | payer OTHER, SELFPAY ==
--- NOTE | 2022-03-04 | DI.MRI.S_ITS ---
PROCEDURE: MR LUMBAR SPINE WO CON INDICATIONS: Spinal stenosis, lumbar region TECHNIQUE: Noncontrast sagittal T1 spin echo and T2 fast echo, sagittal STIR, and T2 fast spin echo through the lumbar spine. In cases with scoliosis, additional coronal T2 fast spin echo may be performed. COMPARISON: [facility], MR, MR LUMBAR SPINE WO CON, 06/09/2020, 13:37. FINDINGS: Image quality: Excellent. Alignment and Curvature: There is normal bony alignment. Bone Marrow: Marrow is of normal overall signal. No acute vertebral body compression fractures. Spinal Cord: Conus medullaris terminates at the L1 level. Visualized cord demonstrates normal signal and size. Paraspinous Soft Tissues: No paravertebral masses. T12-L1: Normal appearance. L1-L2: No canal stenosis or foraminal narrowing. L2-L3: Moderate disc desiccation and height loss. Broad-based disc bulge. No canal stenosis. Mild bilateral neural foraminal stenosis. These findings are unchanged from the study dated June 09, 2020. L3-L4: Mild disc desiccation and height loss. Broad-based disc bulge. No canal stenosis. Mild bilateral foraminal stenosis. Mild epidural lipomatosis. Findings are unchanged. L4-L5: Mild disc desiccation and height loss. Broad-based disc bulge. Mild epidural lipomatosis. Severe facet ligamentum flavum hypertrophy. Moderate canal stenosis. Mild bilateral neural foraminal narrowing. Findings are unchanged from the prior study. L5-S1: Mild disc desiccation and height loss. Moderate facet sclerosis. No canal stenosis. Moderate bilateral neural foraminal stenosis. Findings are unchanged. IMPRESSION: Overall stable findings when compared with the MRI dated June 09, 2020. Moderate canal stenosis at L4-5 and moderate bilateral foraminal stenosis at L5-S1 is redemonstrated. Dictated by: Aleena Ritchie M.D. on 03/04/2022 at 14:11 Approved by: Aleena Ritchie M.D. on 03/04/2022 at 14:17
--- NOTE | 2022-03-04 | DI.RAD.S_ITS ---
PROCEDURE: XR HIP W PEL IF DONE RT 2V INDICATIONS: Spinal stenosis, lumbar region TECHNIQUE: AP pelvis with lateral view(s) of the right hip(s). COMPARISON: None. FINDINGS: Bones: No acute fractures or dislocations. Pelvic ring appears intact. No suspicious bony lesions. Minimal degenerative changes of the bilateral hips. Mild lower lumbar spondylosis. Soft tissues: The visualized bowel gas pattern is normal. No suspicious soft tissue calcifications. IMPRESSION: Right hip without acute fracture or dislocation. Minimal degenerative changes of the bilateral hips and lower lumbar spine. Dictated by: Alec Lan M.D. on 03/04/2022 at 15:43 Approved by: Alec Lan M.D. on 03/04/2022 at 15:44
== END ==
PROVIDERS: PCP Internal Medicine; Referring Provider Internal Medicine; Visit Provider Internal Medicine
DX: M48.061 Spinal stenosis, lumbar region without neurogenic claudication (principal); M25.551 Pain in right hip; M48.07 Spinal stenosis, lumbosacral region
CPT/HCPCS: 72148; 73502

== ENCOUNTER 2022-04-28 07:16 | Outpatient (CLI) | payer OTHER, SELFPAY ==
[2022-04-28] VITALS (8 sets, daily range): BP systolic 99–138; BP diastolic 56–63; PULSE 74–82; RESP 12–20; TEMP 36.7; O2SAT 94–98
--- NOTE | 2022-04-28 07:17 | DI.RAD.S_ITS ---
PROCEDURE: PAIN L INTERLAMINAR/CAUDAL INJ INDICATIONS: SPONDYLOSIS COMPARISON: None. FINDINGS: Fluoroscopic spot filming was performed to verify placement of spinal needles at the L5-S1 level(s), as labeled on the films. Appropriate location(s) of the needle tip(s) was confirmed by injection of iodinated contrast. IMPRESSION: Fluoroscopic guidance Approved by: Akshat Miles M.D. on 04/28/2022 at 19:31
[2022-04-28] MEDS: MIDAZOLAM 2 MG/2 ML VIAL IV (08:24)
[2022-04-28] MEDS: BUPIVACAINE 0.25% (PF) VIAL 2 ML INJ (08:30)
[2022-04-28] MEDS: IOPAMIDOL 15 ML VIAL 3 ML INJ (08:31)
[2022-04-28] MEDS: DEXAMETHASONE 10 MG/ML VIAL 20 MG INJ (08:31)
[2022-04-28] MEDS: BETAMETHASONE 30 MG/5 ML MDV 6 MG INJ (08:31)
--- NOTE | 2022-04-28 08:39 | P.PCN_ITS ---
Date/Time/Diagnoses Date of procedure: 04/28/22 Time of procedure: 08:39 Pre-procedure diagnosis: 1. HNP WITH RADICULAR FEATURES, 2. MULTILEVEL CENTRAL STENOSIS, Post-procedure diagnosis: same Procedure Notes Procedure: 1. FLUOROSCOPICALLY GUIDED CONTRAST CONTROLLED INTERLAMINAR EPIDURAL STEROID INJECTION - L5/S1 Indications: Meghan is referred by IRINA Pierce for treatment of Bilateral Foraminal Stenosis L>R LE symptoms. Physician: Jong Jhaveri Total Fluoroscopy time (seconds): 4 Total sedation minutes: 11 Complications: none Procedure in detail & Post-procedure care: FINDINGS Multilevel Central Spinal Stenosis with Nerve Root Compression DESCRIPTION OF PROCEDURE Fluoroscopically guided, contrast-controlled L5/S1 translaminar epidural steroid injection. Following review of allergy and review of potential side effects and complications, including, but not necessarily limited to, infection, allergic reaction, local tissue breakdown, temporary as well as permanent nerve injury, paralysis, stroke and possible , the patient indicated that the patient understood and agreed to proceed. An informed consent document was signed by the patient, witnessed by a nurse, and placed in the patient's chart. Additionally, other treatment options including modalities, medications, and physical therapy were reviewed with the patient. After review of previous anaesthesic history and IV conscious sedation the patient was deemed safe to proceed with today?s procedure with IV conscious sedation as ASA class II designation. Safety time-out was performed to confirm patient ID, procedure to be performed and site of procedure. IV sedation was accomplished with a combination of 2mg of Versed administered by the RN after DO order, titrated to patient comfort during the course of the procedure while the patient remained responsive to all verbal commands. In the prone position, following sterile prep and drape of the lumbar region, the L5/S1 translaminar space was identified fluoroscopically. The skin was anesthetized via a 25-gauge, 1.5-inch needle with 1% lidocaine solution. At this point, a 22-gauge short bevel spinal needle was atraumatically introduced and advanced under fluoroscopic guidance into the region of the L5/S1 translaminar space. Depth was confirmed on lateral view. Radiological data, including multiple fluoroscopic views of the lumbar spine, reveal a spinal needle at the L5/S1 translaminar space. Lateral views then show placement of the needle in the epidural space. Subsequent views show contrast material flowing superiorly and inferiorly in the epidural space. No vascular or intrathecal uptake is observed. At this point, using loss of resistance technique with saline and air, the epidural space was entered. This was confirmed following negative aspiration with injection of approximately 1.5cc of Isovue 200, showing excellent epidural flow without vascular or intrathecal uptake. At this point, 1 cc of 1% lidocain e solution combined with 3cc or 20mg of dexamethasone and 6mg of betamethasone was injected without incident. The patent tolerated the procedure without signs of symptoms of complications prior to transfer to the recovery area for further monitoring. The patient was then transferred to the recovery area where they were observed for an appropriate period of time after the injection. The patient reported a VAS score of 10 prior to the procedure and a post-procedure VAS of 2. POST OP INSTRUCTIONS The patient was provided a Pain Log to continue to record their response to the target-specific procedure prior to follow-up visit with their referring physician. Additionally, specific post-injection care instructions and a contact number to our office were provided if concerns arise regarding possible complications associated with the procedure are suspected.
== END 2022-04-28 08:59 | disposition home or self-care (01) ==
LOC: RAD 07:17
PROVIDERS: PCP Physician Assistant; Referring Provider Physical Medicine & Rehabilitation; Visit Provider Physical Medicine & Rehabilitation
DX: M51.17 Intervertebral disc disorders with radiculopathy, lumbosacral region (principal); M48.07 Spinal stenosis, lumbosacral region
CPT/HCPCS: 62323; 99152; J0702; J1100; J2250; J3490

== ENCOUNTER 2022-07-14 12:44 | Outpatient (CLI) | payer OTHER, SELFPAY ==
[2022-07-14] VITALS (9 sets, daily range): BP systolic 131–170; BP diastolic 70–83; PULSE 61–66; RESP 10–18; TEMP 36.7; O2SAT 95–97
--- NOTE | 2022-07-14 12:45 | DI.RAD.S_ITS ---
PROCEDURE: PAIN L INTERLAMINAR/CAUDAL INJ INDICATIONS: SPONDYLOSIS COMPARISON: [facility], XA, PAIN L INTERLAMINAR/CAUDAL INJ, 04/28/2022, 9:30. FINDINGS: Fluoroscopic spot filming was performed to verify placement of spinal needles at the L4-5 level(s), as labeled on the films. Appropriate location(s) of the needle tip(s) was confirmed by injection of iodinated contrast. IMPRESSION: Intraoperative fluoroscopy used during L4-5 translaminar epidural steroid injection. Dictated by: Ama Combs M.D. on 07/15/2022 at 21:44 Approved by: Ama Combs M.D. on 07/15/2022 at 21:45
[2022-07-14] MEDS: MIDAZOLAM 2 MG/2 ML VIAL IV (13:40)
[2022-07-14] MEDS: BUPIVACAINE 0.25% (PF) VIAL 2 ML INJ (13:45)
[2022-07-14] MEDS: DEXAMETHASONE 10 MG/ML VIAL 20 MG INJ (13:45)
[2022-07-14] MEDS: BETAMETHASONE 30 MG/5 ML MDV 6 MG INJ (13:45)
[2022-07-14] MEDS: IOPAMIDOL 15 ML VIAL 3 ML INJ (13:46)
--- NOTE | 2022-07-14 13:55 | P.PCN_ITS ---
Date/Time/Diagnoses Date of procedure: 07/14/22 Time of procedure: 13:55 Pre-procedure diagnosis: 1. HNP WITH RADICULAR FEATURES, 2. MULTILEVEL CENTRAL STENOSIS, Post-procedure diagnosis: same Procedure Notes Procedure: 1. FLUOROSCOPICALLY GUIDED CONTRAST CONTROLLED INTERLAMINAR EPIDURAL STEROID INJECTION -L4/5 Indications: Meghan is referred by IRINA Pierce for treatment of Bilateral Foraminal Stenosis R>L LE symptoms. Physician: Jong Jhaveri Total Fluoroscopy time (seconds): 8 Total sedation minutes: 10 Complications: none Procedure in detail & Post-procedure care: FINDINGS Multilevel Central Spinal Stenosis with Nerve Root Compression DESCRIPTION OF PROCEDURE Fluoroscopically guided, contrast-controlled para right L4/5 translaminar epidural steroid injection. Following review of allergy and review of potential side effects and complications, including, but not necessarily limited to, infection, allergic reaction, local tissue breakdown, temporary as well as permanent nerve injury, paralysis, stroke and possible , the patient indicated that the patient understood and agreed to proceed. An informed consent document was signed by the patient, witnessed by a nurse, and placed in the patient's chart. Additionally, other treatment options including modalities, medications, and physical therapy were reviewed with the patient. After review of previous anaesthesic history and IV conscious sedation the patient was deemed safe to proceed with today?s procedure with IV conscious sedation as ASA class II designation. Safety time-out was performed to confirm patient ID, procedure to be performed and site of procedure. IV sedation was accomplished with a combination of 2mg of Versed was administered by the RN after DO order, titrated to patient comfort during the course of the procedure while the patient remained responsive to all verbal commands In the prone position, following sterile prep and drape of the lumbar region, the L4/5 translaminar space was identified fluoroscopically. The skin was anesthetized via a 25-gauge, 1.5inch needle with 1% lidocaine solution. At this point, a 22-gauge short bevel spinal needle was atraumatically introduced and advanced under fluoroscopic guidance into the region of the L4/5 translaminar space. Depth was confirmed on lateral view. Radiological data, including multiple fluoroscopic views of the lumbar spine, reveal a spinal needle at the L4/5 translaminar space. Lateral views then show placement of the needle in the epidural space. Subsequent views show contrast material flowing superiorly and inferiorly in the epidural space. No vascular or intrathecal uptake is observed. At this point, using loss of resistance technique with saline and air, the epidural space was entered. This was confirmed following negative aspiration with injection of approximately 1.5cc of Isovue 200, showing excellent epidural flow without vascular or intrathecal uptake. At this point, 1cc of 1% lidocaine solution combined with 3cc or 20mg of dexamethasone and 6mg betamethasone was injected without incident. The patient tolerated the procedure well without signs or symptoms of complications prior to transfer to the recovery area continued monitoring without incident. The patient was then transferred to the recovery area where they were observed for an appropriate period of time after the injection. The patient reported a VAS score of 6 prior to the procedure and a post- procedure VAS of 0. POST OP INSTRUCTIONS The patient was provided a Pain Log to continue to record their response to the target-specific procedure prior to follow-up visit with their referring physician. Additionally, specific post-injection care instructions and a contact number to our office were provided if concerns arise regarding possible complications associated with the procedure are suspected.
== END 2022-07-14 14:13 | disposition home health service (06) ==
PROVIDERS: PCP Physician Assistant; Referring Provider Physical Medicine & Rehabilitation; Visit Provider Physical Medicine & Rehabilitation
DX: M48.062 Spinal stenosis, lumbar region with neurogenic claudication (principal); M47.9 Spondylosis, unspecified
CPT/HCPCS: 62323; 99152; J0702; J1100; J2250; J3490

== ENCOUNTER → 2022-09-07 10:36 | Outpatient (CLI) | payer OTHER, SELFPAY ==
--- NOTE | 2022-09-07 10:37 | DI.RAD.S_ITS ---
PROCEDURE: XR LUMBAR SPINE MIN 4V INDICATIONS: BACK PAIN TECHNIQUE: 5 views of the lumbar spine were acquired, including bilateral oblique views.>> COMPARISON: [facility], CR, XR LUMBAR SPINE MIN 4V, 06/17/2020, 13:12. FINDINGS: Bones: 5 nonrib-bearing vertebrae are present. There is 6 millimeter anterolisthesis of L4 on L5 and 4 millimeter anterolisthesis of L5 on S1. Mild degenerative endplate changes are noted at L3-4 through L5-S1 levels.. No vertebral body compression fractures. No suspicious bony lesions. Soft tissues: Overlying bowel gas pattern is normal. No suspicious soft tissue calcifications. Oblique images: No pars defects. IMPRESSION: Mild degenerative disc disease in mid to lower lumbar spine. Grade 1 anterolisthesis at L4-5 and L5-S1 levels as above. No acute compression fracture. No gross pars defects. Dictated by: Ubaldo Geller M.D. on 09/07/2022 at 11:50 Approved by: Ubaldo Geller M.D. on 09/07/2022 at 11:51
== END ==
PROVIDERS: PCP Physician Assistant; Referring Provider Physical Medicine & Rehabilitation; Visit Provider Physical Medicine & Rehabilitation
DX: M51.36 Other intervertebral disc degeneration, lumbar region (principal); M51.37 Other intervertebral disc degeneration, lumbosacral region; M43.16 Spondylolisthesis, lumbar region; M43.17 Spondylolisthesis, lumbosacral region; M48.062 Spinal stenosis, lumbar region with neurogenic claudication; M51.26 Other intervertebral disc displacement, lumbar region; M51.9 Unspecified thoracic, thoracolumbar and lumbosacral intervertebral disc disorder; M99.79 Connective tissue and disc stenosis of intervertebral foramina of abdomen and other regions
CPT/HCPCS: 72110

== ENCOUNTER 2023-01-10 12:24 | Outpatient (CLI) | payer OTHER, SELFPAY ==
[2023-01-10] VITALS (9 sets, daily range): BP systolic 95–130; BP diastolic 52–68; PULSE 60–67; RESP 13–21; TEMP 35.9; O2SAT 95–100
--- NOTE | 2023-01-10 13:00 | DI.RAD.S_ITS ---
PROCEDURE: PAIN L/S TRANSFORAMINAL INJECT INDICATIONS: SPONDYLOSIS COMPARISON: [facility], , PAIN L/S TRANSFORAMINAL INJECT, 02/03/2022, 12:05. FINDINGS: Fluoroscopic spot filming was performed to verify placement of a spinal needle at the L4-L5 level, as labeled on the films. Appropriate location of the needle tip was confirmed by injection of iodinated contrast. IMPRESSION: Intraprocedural examination within normal limits. Dictated by: Joseph Mcnamara M.D. on 01/10/2023 at 17:23 Approved by: Joseph Mcnamara M.D. on 01/10/2023 at 17:24
--- NOTE | 2023-01-10 13:15 | P.PCN_ITS ---
Date/Time/Diagnoses Date of procedure: 01/10/23 Time of procedure: 13:40 Pre-procedure diagnosis: 1. FORAMINAL STENOSIS WITH LE SYMPTOMS Post-procedure diagnosis: same Procedure Notes Procedure: 1. FLUOROSCOPICALLY GUIDED CONTRAST CONTROLLED TRANSFORAMINAL EPIDURAL STEROID INJECTION - RIGHT L4/5 TFESI Indications: Meghan is referred by IRINA Pierce for treatment of Foraminal Stenosis with Right LE Symptoms Physician: Jong Jhaveri Total Fluoroscopy time (seconds): 10 Total sedation minutes: 14 Complications: none Procedure in detail & Post-procedure care: FINDINGS Foraminal Nerve Root Compression secondary to disc disease and facet hypertrophy DESCRIPTION OF PROCEDURE Following review of allergy and review of potential side effects and complications, including, but not necessarily limited to, infection, allergic reaction, local tissue breakdown, stroke, temporary or permanent nerve injury, paralysis, and possible , the patient indicated that the patient understood and agreed to proceed. An informed consent document was signed by the patient, witnessed by a nurse, and placed in the patient's chart. Additionally, other treatment options including medications, modalities, and physical therapy were reviewed with the patient. After review of previous anaesthesic history and IV conscious sedation the patient was deemed safe to proceed with today?s procedure with IV conscious sedation as ASA class II designation. Safety time-out was performed to confirm patient ID, procedure to be performed and site of procedure. IV sedation was accomplished with a combination of 2mg of Versed and 50mcg of Fentanyl was administered by the RN after DO order, titrated to patient comfort during the course of the procedure while the patient remained responsive to all verbal commands In the prone position following sterile prep and drape of the lumbar region, the right L4/5 posterior neuroforamen was identified fluoroscopically. The skin was anesthetized via a 25-gauge 1.5-inch needle with 1% lidocaine solution. At this point, a 22-gauge 5-inch spinal needle was atraumatically introduced and advanced under fluoroscopic guidance through the posterior right L4/5 n euroforamen to approximately the anterior aspect of the canal. Depth was confirmed on lateral view. Following negative aspiration, injection of approximately 1.5cc of Isovue 200 under live fluoroscopy in the AP view confirmed excellent flow along the nerve root, into the epidural space without vascular or intrathecal uptake observed Radiological data, including multiple fluoroscopic views of the lumbosacral spine, reveal a spinal needle at the right L4/5 posterior neuroforamen. Subsequent views show flow of contrast material flowing superiorly and inferiorly along the nerve root confirming epidural flow. Subsequently, a test dose of 1.5 cc of 1% lidocaine solution was administered and patient was observed for two minutes for signs or symptoms of complications, including abdominal pain, shortness of breath, bilateral upper or lower extremity weakness, nausea and vomiting, prior to steroid injection. At this point, a total of 2cc or 10mg of dexamethasone and 6mg of betamethasone was injected without incident. The procedure tolerated the procedure well without signs or symptoms of complications prior to transfer to the recovery area continued monitoring without incident. The patient was then transferred to the recovery area where they were observed for an appropriate time after the injection. The patient reported a VAS score of 7 prior to the procedure and a post-p rocedure VAS of 0. POST OP INSTRUCTIONS The patient was provided a Pain Log to continue to record their response to the target-specific procedure prior to follow-up visit with their referring physician. Additionally, specific post-injection care instructions and a contact number to our office were provided if concerns arise regarding possible complications associated with the procedure are suspected.
[2023-01-10] MEDS: MIDAZOLAM 2 MG/2 ML VIAL IV (13:22)
[2023-01-10] MEDS: BUPIVACAINE 0.25% (PF) VIAL 2 ML INJ (13:28)
[2023-01-10] MEDS: iopamidoL 15 ML VIAL 3 ML INJ (13:28)
[2023-01-10] MEDS: DEXAMETHASONE 10 MG/ML VIAL INJ (13:29)
[2023-01-10] MEDS: BETAMETHASONE 30 MG/5 ML MDV 6 MG INJ (13:29)
--- NOTE | 2023-01-10 14:00 | PC.NURSE ---
R Knee Weakness Patient here for procedure today in wheelchair due to patient stated weakness in my R knee. Patient states that she has severe weakness in her Right knee cap and that her had to put her in a wheelchair today.
--- NOTE | 2023-01-10 14:06 | PC.NURSE ---
Patient transferred from chair to w/c for d/c and was at baseline pre procedure mobility. This RN assisted patient to transfer into car noted to have more right leg weakness, needed extra assistance to get into car. Spouse (Tanmay) states that she usually has a hard time with that right leg but that was worse then her normal. This RN strongly advised patient to come back into be monitored until weakness resolved. Pt declined and states I am not going back in I am going home to lay down. Patient refused. Patient has a 45min ride home. Tanmay state that he can have someone come help and stand by to get her in the house. Educated patient on risk and benefits of coming back in to be monitored. Continues to decline care. made aware.
== END 2023-01-10 14:00 | disposition home health service (06) ==
PROVIDERS: PCP Physician Assistant; Referring Provider Physical Medicine & Rehabilitation; Visit Provider Physical Medicine & Rehabilitation
DX: M48.061 Spinal stenosis, lumbar region without neurogenic claudication (principal); M51.16 Intervertebral disc disorders with radiculopathy, lumbar region; M47.26 Other spondylosis with radiculopathy, lumbar region
CPT/HCPCS: 64483; 99152; J0702; J1100; J2250; J3490

== ENCOUNTER → 2023-05-20 09:51 | Outpatient (CLI) | payer MEDICARE, SELFPAY ==
--- NOTE | 2023-05-20 10:40 | DI.MRI.S_ITS ---
PROCEDURE: MR LUMBAR SPINE WO CON INDICATIONS: Spinal stenosis, lumbar region with neurogenic cla TECHNIQUE: Noncontrast sagittal T1 spin echo and T2 fast echo, sagittal STIR, and T2 fast spin echo through the lumbar spine. In cases with scoliosis, additional coronal T2 fast spin echo may be performed. COMPARISON: [facility], MR, MR LUMBAR SPINE WO CON, 03/04/2022, 12:11. FINDINGS: Image quality: Excellent. Alignment and Curvature: There is normal bony alignment. Bone Marrow: Marrow is of normal overall signal. No acute vertebral body compression fractures. Spinal Cord: Conus medullaris terminates at the L1-2 level. Visualized cord demonstrates normal signal and size. Paraspinous Soft Tissues: No paravertebral masses. T12-L1: Normal appearance. L1-L2: Normal appearance. L2-L3: Broad-based disc bulge, facet effusions. Very mild neural foraminal narrowing. L3-L4: Broad-based disc bulge, mild facet hypertrophy and trace right effusion. Mild bilateral neural foraminal narrowing. L4-L5: Broad-based disc bulge, facet hypertrophy and arthrosis. [id number] bilateral neural foraminal narrowing. L5-S1: Broad-based disc bulge, facet hypertrophy and effusions. Severe right and moderate left neural foraminal narrowing. IMPRESSION: Multilevel degenerative disc disease and facet arthrosis: No significant spinal canal narrowing. Up to severe neural foraminal narrowing at L5-S1. This has progressed since 2022. Dictated by: Peewee Guillen M.D. on 05/22/2023 at 9:49 Approved by: Peewee Guillen M.D. on 05/22/2023 at 9:52
== END ==
PROVIDERS: PCP Physician Assistant; Referring Provider Orthopaedic Surgery; Visit Provider Orthopaedic Surgery
DX: M48.062 Spinal stenosis, lumbar region with neurogenic claudication (principal); M48.07 Spinal stenosis, lumbosacral region; M51.36 Other intervertebral disc degeneration, lumbar region; M51.37 Other intervertebral disc degeneration, lumbosacral region; M47.816 Spondylosis without myelopathy or radiculopathy, lumbar region; M47.817 Spondylosis without myelopathy or radiculopathy, lumbosacral region
CPT/HCPCS: 72148

== ENCOUNTER → 2023-11-02 12:38 | Outpatient (CLI) | payer MEDICARE, SELFPAY ==
--- NOTE | 2023-11-02 12:39 | DI.MG.S_ITS ---
BILATERAL DIGITAL SCREENING MAMMOGRAM 3D/2D WITH CAD: 11/02/2023 CLINICAL: Routine screening. Family history of breast cancer. Comparison is made to exams dated: 06/18/2021 mammogram, 03/02/2018 mammogram, and 03/12/2019 mammogram - [facility]. There are scattered areas of fibroglandular density (category b / 25%-50% glandular tissue). Current study was also evaluated with a Computer Aided Detection (CAD) system. No significant masses, calcifications, or other findings are seen in either breast. There has been no significant interval change. IMPRESSION: NEGATIVE There is no mammographic evidence of malignancy. A 1 year screening mammogram is recommended. Based on the Tyrer Cuzick model (a risk assessment model) the patient's lifetime risk is 11.8% and her 10 year risk is 9.7%. According to the ACR, ACS, and NCCN guidelines, an annual breast MRI exam along with mammogram is recommended if the patient's lifetime risk is 20% or greater. This exam was interpreted at Station ID: [id number]. NOTE: For mammograms, a report in lay terms will be sent to the patient. Approximately 15% of breast malignancies will not be visualized mammographically. In the management of a palpable breast mass, a negative mammogram must not discourage biopsy of a clinically suspicious lesion. Electronically Signed By: Alec [email or web address]/fritz:11/02/2023 17:55:28 letter sent: Normal Exam ACR BI-RADS Category 1: Negative [id number]
== END ==
PROVIDERS: PCP Physician Assistant; Referring Provider Physician Assistant; Visit Provider Physician Assistant
DX: Z12.31 Encounter for screening mammogram for malignant neoplasm of breast (principal); Z80.3 Family history of malignant neoplasm of breast
CPT/HCPCS: 77063; 77067

== ENCOUNTER → 2024-04-18 12:14 | Outpatient (CLI) | payer MEDICARE, SELFPAY ==
--- NOTE | 2024-04-18 12:16 | DI.MRI.S_ITS ---
PROCEDURE: MR LUMBAR SPINE WO CON INDICATIONS: FUSION OF SPINE OF LUMBAR REGION TECHNIQUE: Noncontrast sagittal T1 spin echo and T2 fast echo, sagittal STIR, and T2 fast spin echo through the lumbar spine. In cases with scoliosis, additional coronal T2 fast spin echo may be performed. COMPARISON: [facility], MR, MR LUMBAR SPINE WO CON, 05/20/2023, 9:59. FINDINGS: Image quality: Excellent. Alignment and Curvature: Mild anterolisthesis of L4 on L5. Bone Marrow: L5-S1 posterior spinal fixation and discectomy hardware. Marrow is of normal overall signal. No acute vertebral body compression fractures. Spinal Cord: Conus medullaris terminates at the L1-L2 level. Visualized cord demonstrates normal signal and size. Paraspinous Soft Tissues: No paravertebral masses. T12-L1: Normal appearance. L1-L2: Mild facet arthropathy. No central canal or neural foraminal stenosis. L2-L3: Disc desiccation and height loss. Mild diffuse disc bulge. Facet arthropathy. No significant central canal or neural foraminal stenosis. L3-L4: Disc desiccation and mild height loss. Diffuse disc bulge. Facet arthropathy and thickening of ligamentum flavum. Epidural lipomatosis. No significant central canal stenosis. Mild bilateral neural foraminal stenosis is stable. L4-L5: Mild anterolisthesis. Disc desiccation and mild disc bulge. Facet arthropathy and thickening of ligamentum flavum. No significant central canal stenosis. Ubyv-[id number] bilateral neural foraminal stenosis is stable. L5-S1: Postoperative changes. No central canal stenosis. Severe right neural foraminal stenosis is redemonstrated. Mild left neural foraminal stenosis. IMPRESSION: 1. Multilevel degenerative changes of the lumbar spine status post L5-S1 posterior spinal fixation. 2. No significant central canal stenosis. 3. Severe right neural foraminal stenosis at L5-S1. Dictated by: Kai Sorto M.D. on 04/18/2024 at 13:51 Approved by: Kai Sorto M.D. on 04/18/2024 at 13:55
== END ==
PROVIDERS: PCP Physician Assistant; Referring Provider Orthopaedic Surgery; Visit Provider Orthopaedic Surgery
DX: M47.816 Spondylosis without myelopathy or radiculopathy, lumbar region (principal); M48.061 Spinal stenosis, lumbar region without neurogenic claudication; M48.07 Spinal stenosis, lumbosacral region; Z98.1 Arthrodesis status
CPT/HCPCS: 72148

== ENCOUNTER 2025-02-09 15:25 | Emergency (ER) | payer MEDICARE, SELFPAY ==
--- OUTSIDE RECORDS SUMMARY | 2025-02-07 14:48 | XMS_ITS | Continuity of Care Document ---
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 Name Role Phone MICHELLE YORK PA-C Primary Care Provider DOC, EMS Attending Provider DOC, EMS Referring Provider Care Teams Patient Care Team Team Status: Active Member Role/Relationship Status Dates MICHELLE YORK PA-C Primary Care Provider Active Patient Care Team Team Status: Inactive Member Role/Relationship Status Dates MICHELLE YORK PA-C Primary Care Provider Active Start: February 06, 2025 End: February 06, 2025 EMS DOC Attending Provider Active Start: [place] 2024 End: February 06, 2025 EMS DOC Referring Provider Active Start: [place] 2024 End: February 06, 2025 Chief Complaint and Reason for Visit Chief Complaint Admit Date HYPOTENSION February 06, 2025 9:31am Allergies, Adverse Reactions, Alerts Allergen Type Severity Reaction Last Updated Verified Status Comments clindamycin Allergy Unknown Rash November 10, 2024 2:27pm Yes Active Penicillins Allergy Unknown Hives November 10, 2024 2:27pm Yes Active Iodine and Iodide Containing Produc Adverse Reaction Unknown Emesis November 10, 2024 4:00pm Yes Active nausea Social History Smoking Status Status Start Date End Date Date of Observa tion Ex-smoker (finding) 2018 r 2024 5:02pm Observation Status Observation Response Date of Response Living arrangement At home January 6:56am Living Situation With spouse/s.o. February 19, 2018 6:56am ETOH Use None November 10, 2024 2:46pm Substance Use Tobacco February 19, 2 018 6:56am Psychiatric None February 01, 2 023 4:55am Legal Sex Female Sex Assigned At Female 1950 Family History Relationship Condition Age at Onset Recorded Date/T benita Unknown CAD?Mother, Father Unknown February 19, 2018 6:56am CVA/TIA?Mother Unknown January 6:56am Neurological History?None [place] [facility] [place] Respiratory?None Unknown February 012022 4:55am Endocrine/Autoimmune?None Unknown 2022 4:55am Problems Active Problems Problem Diagnosis/Recorded Date Onset Date Status C omments Cirrhosis of liver November 10, 2024 9:43pm Unknown Active Tongue ulcer November 10, 2024 9:43pm Unknown Active Lumbar back pain November 11, 2024 4:29pm Unknown Ac tive Inactive/Resolved Problems Problem Diagnosis/Recorded Date Onset Date Status C omments Injury of head August 23, 2013 1:00am Unknown Resolved Problem List clean-up per request of Phys. EHR Cmte Drug eruption April 29, 2017 7:03pm Unknown Resolved Problem List clean-up per request of Phys. EHR Cmte Sciatica March 18, 2015 9:08am Unknown Resolved Problem List clean-up per request of Phys. EHR Cmte Upper respiratory infection October 28, 2022 1:30pm Unknown Resolved Alcohol intoxication August 23, 2013 1:00am Unknown Reso lved Problem List clean-up per request of Phys. EHR Cmte Back pain March 18, 2015 9:08am Unknown Resolved Problem List clean-up per request of Phys. EHR Cmte Chest wall pain February 06, 2019 5:20am Unknown Reso lved Problem List clean-up per request of Phys. EHR Cmte Contusion of right calf March 22, 2016 2:45am Unknown Resolved Problem List clean-up per request of Phys. EHR Cmte HLD (hyperlipidemia) November 10 2:45pm Unknown Resolved Hyperlipidemia February 19, 2018 6:52am Unknown Resol criselda Problem List clean-up per request of Phys. EHR Cmte Hyponatremia August 23, 2013 1:04am Unknown Resolved P roblem List clean-up per request of Phys. EHR Cmte Knee injury January 31, 2017 1:37pm Unknown Resolved Problem List clean-up per request of Phys. EHR Cmte Atypical chest pain February 06, 2019 5:20am Unknown Resolved Problem List clean-up per request of Phys. EHR Cmte Weakness May 12, 2018 4:17am Unknown Resolved P roblem List clean-up per request of Phys. EHR Cmte Jaw pain March 26, 2021 7:48am Unknown Resolved Chronic back pain February 19, 2018 6:55am Unknown Re solved Problem List clean-up per request of Phys. EHR Cmte Tingling March 26, 2021 7:48am Unknown Resolved History of back surgery November 10, 2024 2:45pm Unknown Resolved Altered mental status November 10 9:43pm Unknown Resolved Neck pain March 26, 2021 7:48am Unknown Resolved Chest pain February 19, 2018 2:50am Unknown Resolved Problem List clean-up per request of Phys. EHR Cmte HTN (hypertension) November 10, 2024 2:45pm Unknown Resolved Hypertension February 19, 2018 6:52am Unknown Resolve d Problem List clean-up per request of Phys. EHR Cmte Fall August 23, 2013 1:00am Unknown Resolved Pro blem List clean-up per request of Phys. EHR Cmte Laceration of left thumb November 21, 2021 9:35pm Unknown Resolved Dehydration February 06, 2019 5:20am Unknown Resolved Problem List clean-up per request of Phys. EHR Cmte Hypokalemia August 23, 2013 1:04am Unknown Resolved Pr oblem List clean-up per request of Phys. EHR Cmte Medications Medication Status Dose Units Route Directions Qty Days Refills S tart Date Stop Date End Date Reason(s) Instructions Adherence Atenolol 50 MG tablet Discont inued 50 MG PO DAILY August 22, 2013 11:00p m Septe mber 2024 9:37a m Hydrocodone -Acetaminop hen 1 TAB tablet Discont inued 1 TAB 2015 12:00a m June 19, 2016 2:29a m Cyclobenzap rine 10 MG tablet Discont inued 10 MG PO THREE TIMES A DAY as needed for Spasms 20 0 2015 12:00a m Decem yolande 2017 12:27 am Prednisone 20 MG tablet Discont inued 40 MG PO DAILY 5 0 2015 12:00a m June 19, 2016 2:24a m Oxycodone-A cetaminophe n (Percocet 5-325 Mg Tablet) 1 EACH tablet Discont inued 1 - 2 EACH PO Q6H as needed for pain 14 0 2015 12:00a m [facility] yolande 2017 12:27 am Hydrocodone -Acetaminop hen 1 TAB tablet Discont inued 1 - 2 EACH PO Q6H as needed for Pain 15 0 2016 12:[address]a m [facility] 2021 8:01a m Hydrochloro thiazide 25 MG tablet Discont inued 25 MG PO DAILY June 18, 2016 11:00p m [facility] 2021 8:01a m Cyclobenzap rine 10 MG tablet Discont inued 10 MG PO THREE TIMES A DAY as needed for Spasms 20 0 June 18, 2016 11:00p m [facility] 2021 8:01a m Oxycodone-A cetaminophe n 1 TAB tablet Discont inued 1 - 2 EACH PO Q6H as needed for Pain 14 0 June 19, 2016 4:04am [facility] yolande 2017 12:25 am Prednisone 20 MG tablet Discont inued 40 MG PO DAILY 10 April 29, 2017 12:00a m [facility] 2017 12:25 am Doxycycline Hyclate 100 MG tablet Discont inued 100 MG PO TWICE A DAY 20 April 29, 2017 7:15pm [facility] 2017 12:26 am Meloxicam 15 MG tablet Discont inued 15 MG PO DAILY [facility] 2017 12:00a m [facility] 2018 5:07a m Ranitidine Hcl 150 MG tablet Discont inued 150 MG PO TWICE A DAY [facility] 2017 12:00a m [facility]2021 8:01a m Atorvastati n 40 MG tablet Active 40 MG PO EVERY EVENING 15 0 [facility] 2017 12:00a m Unknown Aspirin (Adult Aspirin Regimen) 81 MG tablet,elyse yed release (DR/EC) Discont inued 81 MG PO DAILY 15 0 [facility] 2017 12:00a m Septe [facility] 2024 2:43p m Nitroglycer in 0.4 MG tablet, sublingual Discont inued 0.4 MG SL EVERY 5 MINUTES as needed for Chest Pain 30 0 Decemb er 2017 12:00a m [facility] 2024 9:40a m Amlodipine 5 MG tablet Discont inued 5 MG PO DAILY Decemb er 2018 12:00a m [facility] 2024 9:37a m Cyclobenzap rine 10 MG tablet Discont inued ua 2021 12:00a m Octob er 2021 9:07p m Hydralazine 25 MG tablet Discont inued 25 MG PO DAILY ua 2021 12:00a m [facility] 2024 9:38a m Oxycodone-A cetaminophe n (Percocet) 1 EACH tablet Discont inued 5 MG PO EVERY 6 HOURS 2021 12:00a m [facility] 2024 9:41a m Isosorbide Mononitrate 60 MG tablet extended release 24 hr Discont inued ua 2021 12:00a m Octob er 2021 9:06p m Duloxetine 30 MG capsule,del ayed release(DR/ EC) Discont inued 30 MG PO DAILY 2021 12:00a m [facility] 2024 9:38a m Prednisone 10 MG tablet Discont inued 10 MG PO 10 DAY TAPER 42 0 Septem 2022 11:00p m [facility] 2024 2:44p m Day 1-4: Take 60mg (6 tablets) daily; Day 5-7: Take 40mg (4 tablets) daily; Day 8-10: Take 20mg (2 tablets) daily Hydrocodone -Acetaminop hen 1 TAB tablet Discont inued 1 - 2 TAB PO BEDTIME 10 0 Septem yolande 2022 [facility] 2024 9:39a m Ondansetron 4 MG tablet,disi ntegrating Active 4 MG TL Q6H as needed for Nausea / Vomiting 10 0 Septem yolande 2022 11:00p m Unknown Hydrocodone -Acetaminop hen 1 TAB tablet Discont inued 1 - 2 TAB PO Q6H as needed for Pain 14 0 Decemb er 2022 2024 9:39a m Take 1-2 tablets every 6 hours as needed Acyclovir 800 MG tablet Discont inued 800 MG PO 5 TIMES DAILY 35 0 Decemb er 2022 12:00a m 2024 2:42p m Furosemide 20 mg tablet Active 20 MG PO DAILY 2024 11:00p m Unknown Atenolol 100 mg tablet Active 100 MG PO DAILY 2024 11:00p m Unknown Oxycodone 15 mg tablet Active 15 MG PO Q4H 2024 11:00p m On Hold: Resume on 11/19/24. Please resume your lower dose of oxycodone. Unknown Hydralazine 50 mg tablet Active 50 MG PO THREE TIMES A DAY 2024 11:00p m Unknown Methylpredn isolone 4 mg tablets,dos e pack Active MG 2024 11:00p m Unknown Potassium Chloride 10 mEq tablet,ER particles/c rystals Active 10 MEQ PO DAILY WITH MEAL 2024 11:00p m Unknown Lidocaine Hcl 2 % Solution Active 5 ML MM Q4H as needed for Mouth Sore Pain 100 0 2024 11:00p m Tongue ulceration Glossitis Unknown Immunizations Immunization Event Date Not Given Reason Dose Number Tensile Tester Lot Number Reason(s) Given Vaccine Information Statement (VIS) Detail Administration Location COVID-19 (MODERNA) September 01, 2020 COVID-19 (MODERNA) September 29, 2020 Tetanus-Dipth eria-Pertussi s Octobe r 2021 [id number] Tetanus-Dipth eria-Pertussi s August 24, 2012 Advance Directives Advance Directive Response Recorded Date/ Time Advance Directives on file? No Oct 4:02pm Advance Directives No February 28, 2022 5:36am Advance Directives Information Provided No February 28, 2022 5:36am POLST Status Other February 01, 4:55am Insurance Providers Guarantor Parker BARTHOLOMEW Address [address] [facility] [place] [address] Contact Info. Home Phone: Coverage Status Update:2024 Payer Group Member ID Coverage Type Subscriber Relationship to Subscriber Effective Date Expiration Date AAR Medicare Id: [id number] null Parker BARTHOLOMEW Id: [id number] [address] [facility] [place] [address] Home Phone: Email: DECLINE Self [facility] [id number] null Parker BARTHOLOMEW Id: [id number] [address] [facility] [place] [address] Home Phone: Email: ROMAN Self Encounters Encounter Location(s) Arrival/Admit Date Discharge/Departure Date Discharge/Departure Disposition Provider(s) Departed Clinical -Emergency Medical Services February 06, 2025 9:31am February 06, 2025 9:32am Discharged to home care or self care (routine discharge) EMS DOC
[2025-02-09] VITALS (88 sets, daily range): BP systolic 70–116; BP diastolic 40–68; PULSE 50–56; RESP 12–16; TEMP 36.4; O2SAT 82–99; BMI 38.6
--- NOTE | 2025-02-09 15:43 | EKG_ITS ---
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
--- NOTE | 2025-02-09 15:43 | DI.RAD.S_ITS ---
PROCEDURE: XR CHEST 1V INDICATIONS: altered mental status TECHNIQUE: One view of the chest was acquired. COMPARISON: [facility], CT, CT ANGIO CHEST PE PROTOCOL, 02/09/2025, 15:55. [facility], CT, CT HEAD/BRAIN WO CON, 02/09/2025, 15:55. FINDINGS: Surgical changes and devices: None. Lungs and pleura: Low lung volumes are noted. This causes a crowded appearance to the lung markings and limits evaluation. Scattered interstitial prominence can be seen. No large pneumothorax or large pleural effusions are seen. Mediastinum: Mediastinal contours appear normal. Heart size is normal. Bones and chest wall: No suspicious bony lesions. Age-appropriate bony degenerative changes are seen. Overlying soft tissues appear unremarkable. IMPRESSION: Limited portable chest examination, without a significant cardiopulmonary abnormality identified. Dictated by: Joseph Mcnamara M.D. on 02/09/2025 at 15:42 Approved by: Joseph Mcnamara M.D. on 02/09/2025 at 15:43
--- NOTE | 2025-02-09 15:49 | ED.AMS ---
HPI - Altered Mental Status <Tanmay Jc, DO - Last Filed: 02/10/25 09:06> General Chief Complaint: Altered Mental Status Stated Complaint: AMS Time Seen by Provider: 02/09/25 15:34 Source: EMS Mode of arrival: EMS History of Present Illness HPI narrative: 74-year-old female brought in via EMS for weakness and confusion found to have a blood sugar of 22 given 25 g of dextrose brought sugar up to 88. Per EMS, O2 sat in the field was 87% on room air, patient is alert and oriented x2 but still confused at this time with BP 80/50s. Unable to obtain ROS in light of confusion. Related Data Home Medications ?Medication ?Instructions ?Recorded ?Confirmed triamcinolone acetonide 0.025 % 1 anette topical PRN PRN ##0 05/02/17 12/26/22 topical ointment aspirin 81 mg tablet,delayed 81 mg PO DAILY 06/15/20 12/26/22 release (Adult Low Dose Aspirin) atenolol 100 mg tablet 100 mg PO DAILY 06/15/20 12/26/22 atorvastatin 40 mg tablet 40 mg PO BEDTIME 06/15/20 12/26/22 isosorbide mononitrate 60 mg 60 mg PO DAILY 06/15/20 12/26/22 tablet,extended release 24 hr furosemide 20 mg tablet (Lasix) 10 mg PO QAM 09/11/20 12/26/22 oxycodone-acetaminophen 5 mg-325 1 tab PO TID 05/03/21 12/26/22 mg tablet trazodone 50 mg tablet 50 mg PO BEDTIME 05/03/21 12/26/22 duloxetine 30 mg capsule,delayed 30 mg PO DAILY 09/06/21 12/26/22 release hydralazine 25 mg tablet 25 mg PO .PRN 09/06/21 12/26/22 omeprazole 20 mg capsule,delayed 20 mg PO DAILY 09/06/21 12/26/22 release loratadine 10 mg tablet 10 mg PO DAILY 05/18/22 12/26/22 venlafaxine 75 mg capsule,extended 75 mg PO DAILY 12/26/22 12/26/22 release 24 hr Previous Rx's ?Medication ?Instructions ?Recorded gabapentin 300 mg capsule 300 mg PO .COMPLEX #90 caps 09/28/22 diazepam 10 mg tablet (Valium) 10 mg PO .COMPLEX PRN 1-2 prior to 12/26/22 MRI and for possible steroid flare #10 tabs gabapentin 600 mg tablet 600 mg PO .COMPLEX #90 tabs 12/26/22 Allergies Allergy/AdvReac Type Severity Reaction Status Date / Time clindamycin (CLINDAMYCIN) Allergy Severe RASH Unverified 02/09/25 20:52 Penicillins (PENICILLINS) Allergy Unknown Unverified 02/09/25 20:52 Review of Systems <Tanmay Jc, DO - Last Filed: 02/10/25 09:06> Review of Systems ROS Unobtainable: Unobtainable due to mental status/LOC Patient History <Tanmay Jc, DO - Last Filed: 02/10/25 09:06> Medical History (Updated 02/10/25 @ 03:36 by Jeffrey Almaguer MD) Anxiety Spondylolisthesis at L4-L5 level Greater trochanteric bursitis of right hip Spinal stenosis, lumbar region with neurogenic claudication Spinal enthesopathy, sacral and sacrococcygeal region Cervical radiculopathy Sacral dysfunction Foraminal stenosis due to intervertebral disc disease Herniated nucleus pulposus, L1-2 Facet arthropathy, lumbar Social History Smoking Status: Unknown if ever smoked Smoking Status: Unknown if ever smoked Exam <Tanmay Jc, DO - Last Filed: 02/10/25 09:06> Narrative Exam Narrative: GENERAL: [74] year old patient appears stated age. Well-developed patient, in mild distress. HEAD: Atraumatic. Normocephalic. EYES: Pupils equal round and reactive. Extraocular motions intact. No scleral icterus. No injection or drainage. ENT: Nose without bleeding, purulent drainage. Throat without erythema, tonsillar hypertrophy or exudate. Airway patent. NECK: Trachea midline. Non tender CARDIOVASCULAR: Bradycardic but Regular rate and rhythm without murmurs, gallops, or rubs. RESPIRATORY: B/L crackles at bases GASTROINTESTINAL: Abdomen soft, non-tender, nondistended. EXTREMITIES: edema b/l l/e +2 pitting BACK: Nontender without deformity or crepitance. No flank tenderness. NEURO: AOx2. SKIN: R heel ulcer but no active drainage, bleeding, warmth, redness or streaking seen up the leg Initial Vital Signs Initial Vital Signs: Vital Signs Pulse Rate 56 L 02/09/25 15:29 Pulse Oximetry 87 L 02/09/25 15:29 <Jeffrey Almaguer MD - Last Filed: 02/10/25 03:36> Initial Vital Signs Initial Vital Signs: Vital Signs Pulse Rate 56 L 02/09/25 15:29 Pulse Oximetry 87 L 02/09/25 15:29 Course <Tanmay Jc DO - Last Filed: 02/10/25 09:06> Orders Ordered: Discontinued Medications Dextrose (Dextrose 50 % In Water 25 Gm/50 Ml Syringe) 25 gm IV NOW ONE Stop: 02/09/25 19:20 Last Admin: 02/09/25 19:20 Dose: 25 gm Documented By: TRAV Lactated Ringer's (Lactated Ringers) 1,000 mls @ 1,000 mls/hr IV BOLUS ONE Stop: 02/09/25 16:48 Last Infusion: 02/09/25 17:04 Dose: Infused Documented By: Admin: 02/09/25 16:14 Dose: 1,000 mls/hr Documented By: TC Ceftriaxone Sodium 2,000 mg/ (Sodium Chloride) 100 mls @ 200 mls/hr IV NOW ONE Stop: 02/09/25 15:51 Last Infusion: 02/09/25 17:03 Dose: Infused Documented By: Admin: 02/09/25 16:31 Dose: 200 mls/hr Documented By: TC NOREPINEPHRINE BIT/0.9 % NACL (Norepinephr 4 Mg/250-0.9% Nacl) 4 mg in 250 mls @ 37.762 mls/hr IV TITRATE CHAMP; Protocol Last Titration: 02/09/25 23:53 Dose: 0 mcg/kg/min, 0 mls/hr Documented By: Admin: 02/09/25 23:33 Dose: 0.3 mcg/kg/min, 113.285 mls/hr Documented By: Titration: 02/09/25 23:33 Dose: Infused Documented By: Admin: 02/09/25 21:34 Dose: 0.3 mcg/kg/min, 113.285 mls/hr Documented By: Titration: 02/09/25 21:34 Dose: Infused Documented By: Titration: 02/09/25 20:45 Dose: 0.3 mcg/kg/min, 113.285 mls/hr Documented By: Titration: 02/09/25 20:17 Dose: 0.2 mcg/kg/min, 75.524 mls/hr Documented By: Titration: 02/09/25 19:36 Dose: 0.15 mcg/kg/min, 56.643 mls/hr Documented By: Titration: 02/09/25 18:24 Dose: 0.12 mcg/kg/min, 45 mls/hr Documented By: Admin: 02/09/25 17:50 Dose: 0.1 mcg/kg/min, 37.5 mls/hr Documented By: JENNIFER Lidocaine/Prilocaine (Lidocaine/Prilocaine 5 Gm) 5 gm TOP NOW ONE Stop: 02/09/25 15:43 Last Admin: 02/09/25 23:22 Dose: Not Given Documented By: TRAV Ondansetron HCl (Ondansetron 4 Mg/2 Ml Inj) 4 mg IV NOW PRN PRN Reason: Nausea And Vomiting Ondansetron HCl (Ondansetron 4 Mg Odt) 4 mg PO NOW PRN PRN Reason: Nausea And Vomiting Vital Signs Vital signs: Vital Signs - 8 hr 02/09/25 19:30 02/09/25 19:31 02/09/25 19:31 Pulse Rate 53 L 53 L Respiratory Rate 14 15 Blood Pressure 82/54 L Pulse Oximetry 95 95 02/09/25 19:36 02/09/25 19:36 02/09/25 19:40 Pulse Rate 53 L 53 L Respiratory Rate 14 14 Blood Pressure 113/67 Pulse Oximetry 94 96 02/09/25 19:40 02/09/25 19:46 02/09/25 19:46 Pulse Rate 53 L Respiratory Rate 12 Blood Pressure 105/59 L 105/54 L Pulse Oximetry 98 02/09/25 19:50 02/09/25 19:50 02/09/25 20:00 Pulse Rate 52 L Respiratory Rate 13 Blood Pressure 93/49 L 88/55 L Pulse Oximetry 99 02/09/25 20:00 02/09/25 20:06 02/09/25 20:06 Pulse Rate 51 L 52 L Respiratory Rate 14 13 Blood Pressure 84/53 L Pulse Oximetry 98 98 02/09/25 20:11 02/09/25 20:11 02/09/25 20:20 Pulse Rate 52 L Respiratory Rate 15 Blood Pressure 83/53 L 78/55 L Pulse Oximetry 98 02/09/25 20:20 02/09/25 20:26 02/09/25 20:26 Pulse Rate 55 L 53 L Respiratory Rate 13 13 Blood Pressure 116/68 Pulse Oximetry 98 96 02/09/25 20:30 02/09/25 20:31 02/09/25 20:31 Pulse Rate 53 L 52 L Respiratory Rate 14 15 Blood Pressure 92/54 L Pulse Oximetry 97 98 02/09/25 20:35 02/09/25 20:35 02/09/25 20:40 Pulse Rate 52 L 52 L Respiratory Rate 13 13 Blood Pressure 95/58 L Pulse Oximetry 97 98 02/09/25 20:40 02/09/25 20:46 02/09/25 20:46 Pulse Rate 51 L Respiratory Rate 14 Blood Pressure 92/58 L 84/48 L Pulse Oximetry 98 02/09/25 20:54 02/09/25 20:54 02/09/25 20:55 Pulse Rate 51 L 52 L Respiratory Rate 13 13 Blood Pressure 99/62 Pulse Oximetry 97 98 02/09/25 20:55 02/09/25 21:00 02/09/25 21:02 Pulse Rate 51 L 51 L Respiratory Rate 13 14 Blood Pressure 101/65 Pulse Oximetry 98 98 02/09/25 21:02 02/09/25 21:06 02/09/25 21:06 Pulse Rate 51 L Respiratory Rate 13 Blood Pressure 112/56 L 111/56 L Pulse Oximetry 98 02/09/25 21:16 02/09/25 21:16 02/09/25 21:21 Pulse Rate 52 L 51 L Respiratory Rate 15 13 Blood Pressure 113/56 L Pulse Oximetry 96 98 02/09/25 21:21 02/09/25 21:26 02/09/25 21:26 Pulse Rate 51 L Respiratory Rate 13 Blood Pressure 106/53 L 107/53 L Pulse Oximetry 97 02/09/25 21:30 02/09/25 21:31 02/09/25 21:31 Pulse Rate 52 L 51 L Respiratory Rate 13 13 Blood Pressure 102/59 L Pulse Oximetry 98 98 02/09/25 21:35 02/09/25 21:35 02/09/25 21:40 Pulse Rate 51 L 53 L Respiratory Rate 14 14 Blood Pressure 104/60 Pulse Oximetry 98 97 02/09/25 21:40 02/09/25 21:45 02/09/25 21:45 Pulse Rate 52 L Respiratory Rate 14 Blood Pressure 94/54 L 100/58 L Pulse Oximetry 98 02/09/25 21:50 02/09/25 21:50 02/09/25 21:55 Pulse Rate 51 L 51 L Respiratory Rate 13 14 Blood Pressure 101/58 L Pulse Oximetry 98 98 02/09/25 21:55 02/09/25 22:00 02/09/25 22:00 Pulse Rate 53 L Respiratory Rate 14 Blood Pressure 99/55 L 98/56 L Pulse Oximetry 97 02/09/25 22:11 02/09/25 22:11 02/09/25 22:16 Pulse Rate 50 L 54 L Respiratory Rate 12 14 Blood Pressure 106/59 L Pulse Oximetry 98 97 02/09/25 22:16 02/09/25 22:20 02/09/25 22:20 Pulse Rate 52 L Respiratory Rate 13 Blood Pressure 102/51 L 103/59 L Pulse Oximetry 97 02/09/25 22:25 02/09/25 22:25 02/09/25 22:30 Pulse Rate 54 L 53 L Respiratory Rate 14 13 Blood Pressure 103/55 L Pulse Oximetry 97 98 02/09/25 22:30 02/09/25 22:35 02/09/25 22:35 Pulse Rate 55 L Respiratory Rate 16 Blood Pressure 101/54 L 94/60 Pulse Oximetry 97 02/09/25 22:41 02/09/25 22:41 02/09/25 22:45 Pulse Rate 54 L 52 L Respiratory Rate 14 13 Blood Pressure 113/67 Pulse Oximetry 97 97 02/09/25 22:45 02/09/25 22:50 02/09/25 22:50 Pulse Rate 52 L Respiratory Rate 13 Blood Pressure 103/51 L 109/53 L Pulse Oximetry 97 02/09/25 22:55 02/09/25 22:55 02/09/25 23:00 Pulse Rate 53 L Respiratory Rate 13 Blood Pressure 106/57 L 99/51 L Pulse Oximetry 97 02/09/25 23:00 02/09/25 23:05 02/09/25 23:05 Pulse Rate 53 L 54 L Respiratory Rate 14 13 Blood Pressure 91/50 L Pulse Oximetry 97 97 02/09/25 23:10 02/09/25 23:10 02/09/25 23:16 Pulse Rate 55 L Respiratory Rate 13 Blood Pressure 70/44 L 105/57 L Pulse Oximetry 97 02/09/25 23:16 02/09/25 23:20 02/09/25 23:20 Pulse Rate 54 L 54 L Respiratory Rate 16 14 Blood Pressure 91/55 L Pulse Oximetry 98 97 02/09/25 23:25 02/09/25 23:25 02/09/25 23:30 Pulse Rate 54 L 54 L Respiratory Rate 14 15 Blood Pressure 101/55 L Pulse Oximetry 98 97 02/09/25 23:30 02/09/25 23:35 02/09/25 23:35 Pulse Rate 53 L Respiratory Rate 14 Blood Pressure 97/55 L 108/55 L Pulse Oximetry 97 <Jeffrey Almaguer MD - Last Filed: 02/10/25 03:36> Orders Ordered: Discontinued Medications Dextrose (Dextrose 50 % In Water 25 Gm/50 Ml Syringe) 25 gm IV NOW ONE Stop: 02/09/25 19:20 Last Admin: 02/09/25 19:20 Dose: 25 gm Documented By: TRAV Lactated Ringer's (Lactated Ringers) 1,000 mls @ 1,000 mls/hr IV BOLUS ONE Stop: 02/09/25 16:48 Last Infusion: 02/09/25 17:04 Dose: Infused Documented By: Admin: 02/09/25 16:14 Dose: 1,000 mls/hr Documented By: JENNIFER Ceftriaxone Sodium 2,000 mg/ (Sodium Chloride) 100 mls @ 200 mls/hr IV NOW ONE Stop: 02/09/25 15:51 Last Infusion: 02/09/25 17:03 Dose: Infused Documented By: Admin: 02/09/25 16:31 Dose: 200 mls/hr Documented By: JENNIFER NOREPINEPHRINE BIT/0.9 % NACL (Norepinephr 4 Mg/250-0.9% Nacl) 4 mg in 250 mls @ 37.762 mls/hr IV TITRATE CHAMP; Protocol Last Titration: 02/09/25 23:53 Dose: 0 mcg/kg/min, 0 mls/hr Documented By: Admin: 02/09/25 23:33 Dose: 0.3 mcg/kg/min, 113.285 mls/hr Documented By: Titration: 02/09/25 23:33 Dose: Infused Documented By: Admin: 02/09/25 21:34 Dose: 0.3 mcg/kg/min, 113.285 mls/hr Documented By: Titration: 02/09/25 21:34 Dose: Infused Documented By: Titration: 02/09/25 20:45 Dose: 0.3 mcg/kg/min, 113.285 mls/hr Documented By: Titration: 02/09/25 20:17 Dose: 0.2 mcg/kg/min, 75.524 mls/hr Documented By: Titration: 02/09/25 19:36 Dose: 0.15 mcg/kg/min, 56.643 mls/hr Documented By: Titration: 02/09/25 18:24 Dose: 0.12 mcg/kg/min, 45 mls/hr Documented By: Admin: 02/09/25 17:50 Dose: 0.1 mcg/kg/min, 37.5 mls/hr Documented By: TC Lidocaine/Prilocaine (Lidocaine/Prilocaine 5 Gm) 5 gm TOP NOW ONE Stop: 02/09/25 15:43 Last Admin: 02/09/25 23:22 Dose: Not Given Documented By: TRAV Ondansetron HCl (Ondansetron 4 Mg/2 Ml Inj) 4 mg IV NOW PRN PRN Reason: Nausea And Vomiting Ondansetron HCl (Ondansetron 4 Mg Odt) 4 mg PO NOW PRN PRN Reason: Nausea And Vomiting Vital Signs Vital signs: Vital Signs - 8 hr 02/09/25 19:30 02/09/25 19:31 02/09/25 19:31 Pulse Rate 53 L 53 L Respiratory Rate 14 15 Blood Pressure 82/54 L Pulse Oximetry 95 95 02/09/25 19:36 02/09/25 19:36 02/09/25 19:40 Pulse Rate 53 L 53 L Respiratory Rate 14 14 Blood Pressure 113/67 Pulse Oximetry 94 96 02/09/25 19:40 02/09/25 19:46 02/09/25 19:46 Pulse Rate 53 L Respiratory Rate 12 Blood Pressure 105/59 L 105/54 L Pulse Oximetry 98 02/09/25 19:50 02/09/25 19:50 02/09/25 20:00 Pulse Rate 52 L Respiratory Rate 13 Blood Pressure 93/49 L 88/55 L Pulse Oximetry 99 02/09/25 20:00 02/09/25 20:06 02/09/25 20:06 Pulse Rate 51 L 52 L Respiratory Rate 14 13 Blood Pressure 84/53 L Pulse Oximetry 98 98 02/09/25 20:11 02/09/25 20:11 02/09/25 20:20 Pulse Rate 52 L Respiratory Rate 15 Blood Pressure 83/53 L 78/55 L Pulse Oximetry 98 02/09/25 20:20 02/09/25 20:26 02/09/25 20:26 Pulse Rate 55 L 53 L Respiratory Rate 13 13 Blood Pressure 116/68 Pulse Oximetry 98 96 02/09/25 20:30 02/09/25 20:31 02/09/25 20:31 Pulse Rate 53 L 52 L Respiratory Rate 14 15 Blood Pressure 92/54 L Pulse Oximetry 97 98 02/09/25 20:35 02/09/25 20:35 02/09/25 20:40 Pulse Rate 52 L 52 L Respiratory Rate 13 13 Blood Pressure 95/58 L Pulse Oximetry 97 98 02/09/25 20:40 02/09/25 20:46 02/09/25 20:46 Pulse Rate 51 L Respiratory Rate 14 Blood Pressure 92/58 L 84/48 L Pulse Oximetry 98 02/09/25 20:54 02/09/25 20:54 02/09/25 20:55 Pulse Rate 51 L 52 L Respiratory Rate 13 13 Blood Pressure 99/62 Pulse Oximetry 97 98 02/09/25 20:55 02/09/25 21:00 02/09/25 21:02 Pulse Rate 51 L 51 L Respiratory Rate 13 14 Blood Pressure 101/65 Pulse Oximetry 98 98 02/09/25 21:02 02/09/25 21:06 02/09/25 21:06 Pulse Rate 51 L Respiratory Rate 13 Blood Pressure 112/56 L 111/56 L Pulse Oximetry 98 02/09/25 21:16 02/09/25 21:16 02/09/25 21:21 Pulse Rate 52 L 51 L Respiratory Rate 15 13 Blood Pressure 113/56 L Pulse Oximetry 96 98 02/09/25 21:21 02/09/25 21:26 02/09/25 21:26 Pulse Rate 51 L Respiratory Rate 13 Blood Pressure 106/53 L 107/53 L Pulse Oximetry 97 02/09/25 21:30 02/09/25 21:31 02/09/25 21:31 Pulse Rate 52 L 51 L Respiratory Rate 13 13 Blood Pressure 102/59 L Pulse Oximetry 98 98 02/09/25 21:35 02/09/25 21:35 02/09/25 21:40 Pulse Rate 51 L 53 L Respiratory Rate 14 14 Blood Pressure 104/60 Pulse Oximetry 98 97 02/09/25 21:40 02/09/25 21:45 02/09/25 21:45 Pulse Rate 52 L Respiratory Rate 14 Blood Pressure 94/54 L 100/58 L Pulse Oximetry 98 02/09/25 21:50 02/09/25 21:50 02/09/25 21:55 Pulse Rate 51 L 51 L Respiratory Rate 13 14 Blood Pressure 101/58 L Pulse Oximetry 98 98 02/09/25 21:55 02/09/25 22:00 02/09/25 22:00 Pulse Rate 53 L Respiratory Rate 14 Blood Pressure 99/55 L 98/56 L Pulse Oximetry 97 02/09/25 22:11 02/09/25 22:11 02/09/25 22:16 Pulse Rate 50 L 54 L Respiratory Rate 12 14 Blood Pressure 106/59 L Pulse Oximetry 98 97 02/09/25 22:16 02/09/25 22:20 02/09/25 22:20 Pulse Rate 52 L Respiratory Rate 13 Blood Pressure 102/51 L 103/59 L Pulse Oximetry 97 02/09/25 22:25 02/09/25 22:25 02/09/25 22:30 Pulse Rate 54 L 53 L Respiratory Rate 14 13 Blood Pressure 103/55 L Pulse Oximetry 97 98 02/09/25 22:30 02/09/25 22:35 02/09/25 22:35 Pulse Rate 55 L Respiratory Rate 16 Blood Pressure 101/54 L 94/60 Pulse Oximetry 97 02/09/25 22:41 02/09/25 22:41 02/09/25 22:45 Pulse Rate 54 L 52 L Respiratory Rate 14 13 Blood Pressure 113/67 Pulse Oximetry 97 97 02/09/25 22:45 02/09/25 22:50 02/09/25 22:50 Pulse Rate 52 L Respiratory Rate 13 Blood Pressure 103/51 L 109/53 L Pulse Oximetry 97 02/09/25 22:55 02/09/25 22:55 02/09/25 23:00 Pulse Rate 53 L Respiratory Rate 13 Blood Pressure 106/57 L 99/51 L Pulse Oximetry 97 02/09/25 23:00 02/09/25 23:05 02/09/25 23:05 Pulse Rate 53 L 54 L Respiratory Rate 14 13 Blood Pressure 91/50 L Pulse Oximetry 97 97 02/09/25 23:10 02/09/25 23:10 02/09/25 23:16 Pulse Rate 55 L Respiratory Rate 13 Blood Pressure 70/44 L 105/57 L Pulse Oximetry 97 02/09/25 23:16 02/09/25 23:20 02/09/25 23:20 Pulse Rate 54 L 54 L Respiratory Rate 16 14 Blood Pressure 91/55 L Pulse Oximetry 98 97 02/09/25 23:25 02/09/25 23:25 02/09/25 23:30 Pulse Rate 54 L 54 L Respiratory Rate 14 15 Blood Pressure 101/55 L Pulse Oximetry 98 97 02/09/25 23:30 02/09/25 23:35 02/09/25 23:35 Pulse Rate 53 L Respiratory Rate 14 Blood Pressure 97/55 L 108/55 L Pulse Oximetry 97 MDM - Altered Mental Status <Tanmay Jc, DO - Last Filed: 02/10/25 09:06> Lab Data 02/09/25 15:54 02/09/25 15:54 Labs: Lab Results 02/09/25 02/09/25 02/09/25 Range/Units 15:54 17:39 18:47 WBC 6.2 (4.5-11.0) X10^3/uL RBC 4.09 (4.0-5.2) X10^6/uL Hgb 10.9 L (12.0-16.0) g/dL Hct 32.6 L (36-46) % MCV 79.6 L (80-100) fL MCH 26.5 (26-34) PG MCHC 33.3 (30-36) % RDW 16.6 H (11.6-14.8) % Plt Count 154 (150-400) X10^3/uL Neut % (Auto) 70.5 (50-75) % Lymph % (Auto) 19.7 L (25-40) % [place] % (Auto) 9.0 (3-14) % Eos % (Auto) 0.2 L (2-4) % Baso % (Auto) 0.6 (0-2) % Neut # (Auto) 4400 (2807-3982) /uL Lymph # (Auto) 1200 (8713-1222) /uL [place] # (Auto) 600 (0-900) /uL Eos # (Auto) 0 (0-450) /uL Baso # (Auto) 0 (0-100) /uL Smudge Cells 2+ H Toxic Vacuolation Present H RBC Morphology Normal morphology PT 15.9 H (9.4-12.5) SECONDS INR 1.4 H (0.9-1.3) APTT 30 (25.1-36.5) SECONDS Sodium 133 L (137-145) mmol/L Potassium 5.0 (3.4-5.1) mmol/L Chloride 100 (98-107) mmol/L Carbon Dioxide 26 (22-32) mmol/L BUN 43 H (7-17) mg/dL Creatinine 2.91 H (0.52-1.04) mg/dL Estimated GFR 16 L (>60) mL/min BUN/Creatinine Ratio 14.8 (6-22) Glucose 82 (70-99) mg/dL POC Whole Bld Glucose (70-99) mg/dL Lactate 2.1 (0.7-2.1) mmol/L Calcium 7.6 L (8.4-10.2) mg/dL Total Bilirubin 2.0 H (0.2-1.3) mg/dL AST 141 H (14-36) IU/L ALT 33 (<35) IU/L Alkaline Phosphatase 152 H (38-126) U/L Total Creatine Kinase 414 H (30-135) U/L Troponin I 0.073 H (0.01-0.034) ng/mL NT-Pro-B Natriuret Pep 37424 H (<125) pg/mL Total Protein 7.7 (6.3-8.2) g/dL Albumin 2.5 L (3.5-5.0) g/dL Globulin 5.2 H (1.7-4.1) g/dL Albumin/Globulin Ratio 0.5 L (1.0-2.8) Procalcitonin 0.373 (<0.5) ng/mL Urine RBC None seen (0-5/HPF) Urine WBC 1-5/hpf (0-5/HPF) Ur Squamous Epith Cells None seen (0-5/HPF) Urine Bacteria Many (>30) H (None) Ur Culture Indicated? Specimen cultured Vol Urine Centrifuged Low vol <10ml (spun) A U Opiates 300ng/mL cut Negative (Negative) Ur Oxycodone Screen Positive H (Negative) Urine Methadone Screen Negative (Negative) Ur Barbiturates Screen Negative (Negative) U Tricyclic Antidepress Positive H (Negative) Ur Phencyclidine Scrn Negative (Negative) Ur Amphetamines Screen Negative (Negative) U Methamphetamines Scrn Negative (Negative) Ur MDMA Scrn (Ecstasy) Negative (Negative) U Benzodiazepines Scrn Negative (Negative) Urine Cocaine Screen Negative (Negative) U Marijuana (THC) Screen Negative (Negative) Urine pH Normal (Normal) Urine Specific [place] Normal (Normal) Ethyl Alcohol < 10 (<10) mg/dL Ur Creatinine Normal (Normal) 02/09/25 02/09/25 02/09/25 Range/Units 18:49 19:16 20:22 WBC (4.5-11.0) X10^3/uL RBC (4.0-5.2) X10^6/uL Hgb (12.0-16.0) g/dL Hct (36-46) % MCV (80-100) fL MCH (26-34) PG MCHC (30-36) % RDW (11.6-14.8) % Plt Count (150-400) X10^3/uL Neut % (Auto) (50-75) % Lymph % (Auto) (25-40) % [place] % (Auto) (3-14) % Eos % (Auto) (2-4) % Baso % (Auto) (0-2) % Neut # (Auto) (7683-7600) /uL Lymph # (Auto) (1445-1089) /uL [place] # (Auto) (0-900) /uL Eos # (Auto) (0-450) /uL Baso # (Auto) (0-100) /uL Smudge Cells Toxic Vacuolation RBC Morphology PT (9.4-12.5) SECONDS INR (0.9-1.3) APTT (25.1-36.5) SECONDS Sodium (137-145) mmol/L Potassium (3.4-5.1) mmol/L Chloride (98-107) mmol/L Carbon Dioxide (22-32) mmol/L BUN (7-17) mg/dL Creatinine (0.52-1.04) mg/dL Estimated GFR (>60) mL/min BUN/Creatinine Ratio (6-22) Glucose (70-99) mg/dL POC Whole Bld Glucose 60 L 135 H (70-99) mg/dL Lactate (0.7-2.1) mmol/L Calcium (8.4-10.2) mg/dL Total Bilirubin (0.2-1.3) mg/dL AST (14-36) IU/L ALT (<35) IU/L Alkaline Phosphatase (38-126) U/L Total Creatine Kinase (30-135) U/L Troponin I 0.081 H (0.01-0.034) ng/mL NT-Pro-B Natriuret Pep (<125) pg/mL Total Protein (6.3-8.2) g/dL Albumin (3.5-5.0) g/dL Globulin (1.7-4.1) g/dL Albumin/Globulin Ratio (1.0-2.8) Procalcitonin (<0.5) ng/mL Urine RBC (0-5/HPF) Urine WBC (0-5/HPF) Ur Squamous Epith Cells (0-5/HPF) Urine Bacteria (None) Ur Culture Indicated? Vol Urine Centrifuged U Opiates 300ng/mL cut (Negative) Ur Oxycodone Screen (Negative) Urine Methadone Screen (Negative) Ur Barbiturates Screen (Negative) U Tricyclic Antidepress (Negative) Ur Phencyclidine Scrn (Negative) Ur Amphetamines Screen (Negative) U Methamphetamines Scrn (Negative) Ur MDMA Scrn (Ecstasy) (Negative) U Benzodiazepines Scrn (Negative) Urine Cocaine Screen (Negative) U Marijuana (THC) Screen (Negative) Urine pH (Normal) Urine Specific [place] (Normal) Ethyl Alcohol (<10) mg/dL Ur Creatinine (Normal) 02/09/25 Range/Units 20:50 WBC (4.5-11.0) X10^3/uL RBC (4.0-5.2) X10^6/uL Hgb (12.0-16.0) g/dL Hct (36-46) % MCV (80-100) fL MCH (26-34) PG MCHC (30-36) % RDW (11.6-14.8) % Plt Count (150-400) X10^3/uL Neut % (Auto) (50-75) % Lymph % (Auto) (25-40) % [place] % (Auto) (3-14) % Eos % (Auto) (2-4) % Baso % (Auto) (0-2) % Neut # (Auto) (3796-6871) /uL Lymph # (Auto) (7245-6897) /uL [place] # (Auto) (0-900) /uL Eos # (Auto) (0-450) /uL Baso # (Auto) (0-100) /uL Smudge Cells Toxic Vacuolation RBC Morphology PT (9.4-12.5) SECONDS INR (0.9-1.3) APTT (25.1-36.5) SECONDS Sodium (137-145) mmol/L Potassium (3.4-5.1) mmol/L Chloride (98-107) mmol/L Carbon Dioxide (22-32) mmol/L BUN (7-17) mg/dL Creatinine (0.52-1.04) mg/dL Estimated GFR (>60) mL/min BUN/Creatinine Ratio (6-22) Glucose (70-99) mg/dL POC Whole Bld Glucose (70-99) mg/dL Lactate (0.7-2.1) mmol/L Calcium (8.4-10.2) mg/dL Total Bilirubin (0.2-1.3) mg/dL AST (14-36) IU/L ALT (<35) IU/L Alkaline Phosphatase (38-126) U/L Total Creatine Kinase (30-135) U/L Troponin I 0.093 H (0.01-0.034) ng/mL NT-Pro-B Natriuret Pep (<125) pg/mL Total Protein (6.3-8.2) g/dL Albumin (3.5-5.0) g/dL Globulin (1.7-4.1) g/dL Albumin/Globulin Ratio (1.0-2.8) Procalcitonin (<0.5) ng/mL Urine RBC (0-5/HPF) Urine WBC (0-5/HPF) Ur Squamous Epith Cells (0-5/HPF) Urine Bacteria (None) Ur Culture Indicated? Vol Urine Centrifuged U Opiates 300ng/mL cut (Negative) Ur Oxycodone Screen (Negative) Urine Methadone Screen (Negative) Ur Barbiturates Screen (Negative) U Tricyclic Antidepress (Negative) Ur Phencyclidine Scrn (Negative) Ur Amphetamines Screen (Negative) U Methamphetamines Scrn (Negative) Ur MDMA Scrn (Ecstasy) (Negative) U Benzodiazepines Scrn (Negative) Urine Cocaine Screen (Negative) U Marijuana (THC) Screen (Negative) Urine pH (Normal) Urine Specific [place] (Normal) Ethyl Alcohol (<10) mg/dL Ur Creatinine (Normal) Point of Care Testing Glucose POC [address] scan - head: Radiologist's Impression: [place] [address] CT Scan Report Signed Patient: Meghan Luis MR#: [id number] : 1950 Acct:[id number] Age/Sex: 74 / F Date of Service: 02/09/25 Loc: ED Accession Number: [id number] Procedure: CT head/brain wo con Ordering Provider: Tanmay Jc D.O. PROCEDURE: CT HEAD/BRAIN WO CON INDICATIONS: ams TECHNIQUE: Noncontrast 4.5 mm thick angled axial sections acquired from the foramen magnum to the vertex, with coronal and sagittal reformats. For radiation dose reduction, the following was used: automated exposure control, adjustment of mA and/or kV according to patient size. COMPARISON: [facility], CR, XR CHEST 1V, 02/09/2025, 15:48. [facility], CT, CT ANGIO CHEST PE PROTOCOL, 02/09/2025, 15:55. FINDINGS: Image quality: Diagnostic. CSF spaces: Basal cisterns are patent. No extra-axial fluid collections. The ventricles are symmetric in size and shape. Brain: No intracranial bleeds or mass effect. There is cerebral volume loss, with resultant ventricular and sulcal prominence. There are periventricular and deep white matter chronic small vessel ischemic changes. There is intracranial internal carotid artery atherosclerosis. Skull and face: Calvarium and visualized facial bones appear intact, without suspicious lesions. Incidental note is made of hyperostosis frontalis. This is not considered to be pathologic in a woman of this age. Sinuses: Visualized sinuses and mastoids are clear. IMPRESSION: No imaging explanation is found for this patient's presenting symptoms. CTA - brain/neck: Radiologist's Impression: [address] [address] [address] Scan Report Signed Patient: Meghan Luis MR#: [id number] : 1950 Acct:[id number] Age/Sex: 74 / F Date of Service: 02/09/25 Loc: ED Accession Number: [id number] Procedure: CT angio chest PE protocol Ordering Provider: Tanmay Jc D.O. PROCEDURE: CT ANGIO CHEST PE PROTOCOL INDICATIONS: Short of breath, 02 sat 87%RA TECHNIQUE: After the administration of intravenous contrast, 2 mm thick sections acquired from the pulmonary apices to the posterior costophrenic angles. 3-dimensional maximum intensity projection (MIP) coronal and sagittal reformats were then acquired through the thorax. For radiation dose reduction, the following was used: automated exposure control, adjustment of mA and/or kV according to patient size. COMPARISON: [facility], CR, XR CHEST 1V, 02/09/2025, 15:48. [facility], CT, CT HEAD/BRAIN WO CON, 02/09/2025, 15:55. FINDINGS: Image quality: Diagnostic. Pulmonary arteries: Pulmonary arteries are normal in size, and demonstrate no intraluminal filling defects to suggest central pulmonary embolism. Lower Neck: No enlarged lymph nodes. Thyroid: No thyroid nodules which require sonographic follow up, per consensus guidelines. Axillae: No enlarged lymph nodes. Chest Wall: Generalized soft tissue edema is seen. Bones: Age-appropriate bony degenerative changes are seen. Accentuated thoracic kyphosis is seen. Lungs and Pleura: Low lung volumes are noted. This causes a crowded appearance to the lung markings and limits evaluation. There is a small left-sided pleural effusion and a trace right-sided pleural effusion. Overlying atelectasis can be seen. Heart: Heart size is normal. No pericardial effusion. Thoracic Vessels: No aortic aneurysm. Mediastinum and Meche: No enlarged lymph nodes. Esophagus: No wall thickening. No hiatal hernia. Upper Abdomen: Cholecystectomy clips are seen. Lsmg-xa-qivgyitu ascites is seen within the upper abdomen. The visualized portions of the upper abdominal structures are otherwise unremarkable for imaging technique. IMPRESSION: No pulmonary embolus. There is a small left-sided pleural effusion and a trace right-sided pleural effusion. Generalized body wall subcutaneous edema can be seen. Within the upper abdomen, there is hfcw-vb-[id number] ascites seen. Additional findings: Cholecystectomy Dictated by: Joseph Mcnamara M.D. on 02/09/2025 at 15:46 Approved by: Joseph Mcnamara M.D. on 02/09/2025 at 15:48 Chest x-ray: Radiologist's Impression: [address] [address] XRay Report Signed Patient: Meghan Luis MR#: [id number] : 1950 Acct:[id number] Age/Sex: 74 / F Date of Service: 02/09/25 Loc: ED Accession Number: [id number] Procedure: XR chest 1V Ordering Provider: Tanmay Jc D.O. PROCEDURE: XR CHEST 1V INDICATIONS: altered mental status TECHNIQUE: One view of the chest was acquired. COMPARISON: [facility], CT, CT ANGIO CHEST PE PROTOCOL, 02/09/2025, 15:55. [facility], CT, CT HEAD/BRAIN WO CON, 02/09/2025, 15:55. FINDINGS: Surgical changes and devices: None. Lungs and pleura: Low lung volumes are noted. This causes a crowded appearance to the lung markings and limits evaluation. Scattered interstitial prominence can be seen. No large pneumothorax or large pleural effusions are seen. Mediastinum: Mediastinal contours appear normal. Heart size is normal. Bones and chest wall: No suspicious bony lesions. Age-appropriate bony degenerative changes are seen. Overlying soft tissues appear unremarkable. IMPRESSION: Limited portable chest examination, without a significant cardiopulmonary abnormality identified. ECG Data Interpretation: Sinus Fernando HR 55 FL 162 QRS [address]-t wave change Low voltage No previous EKG to compare MDM Narrative Medical decision making narrative: All lab work, vital signs, nurse triage note, medication list, previous ER visits, and all imaging studies reviewed. CT head showed no acute process. CTA showed no pulmonary embolism small left-sided pleural effusion and trace right-sided pleural effusion. Generalized body wall subcutaneous edema. Within upper abdomen there is [id number]-gppcrqnz ascites. WBC 6.2 hemoglobin 10.9 platelets 154 INR 1.4 sodium 133 potassium 5 point chloride 100 CO2 26 BUN 43 creatinine 2.91 glucose 82 acid 2.1 T bili 2.0 AST 141 phos 152 CK 414 Troponin 1st set 0.073 BNp 26,700. Procalcitonin 0.373 urine shows many bacteria. Patient given LR 1 L bolus x2 light of patient being hypotensive 80/50s with signs of overt overload started on levophed drip. Differential diagnosis STEMI NSTEMI CHF NBA Sepsis Hemorrhage. Case d/w ok to titrate up Levophed at this time and if needed phenylephrine for pressure support and to hold off on dobutamine. 2nd set trop pending and pt s/o at shift change pending final disposition. <Jeffrey Almaguer MD - Last Filed: 02/10/25 03:36> Lab Data Labs: Lab Results 02/09/25 02/09/25 02/09/25 Range/Units 15:54 17:39 18:47 WBC 6.2 (4.5-11.0) X10^3/uL RBC 4.09 (4.0-5.2) X10^6/uL Hgb 10.9 L (12.0-16.0) g/dL Hct 32.6 L (36-46) % MCV 79.6 L (80-100) fL MCH 26.5 (26-34) PG MCHC 33.3 (30-36) % RDW 16.6 H (11.6-14.8) % Plt Count 154 (150-400) X10^3/uL Neut % (Auto) 70.5 (50-75) % Lymph % (Auto) 19.7 L (25-40) % [place] % (Auto) 9.0 (3-14) % Eos % (Auto) 0.2 L (2-4) % Baso % (Auto) 0.6 (0-2) % Neut # (Auto) 4400 (0512-3684) /uL Lymph # (Auto) 1200 (2693-7440) /uL [place] # (Auto) 600 (0-900) /uL Eos # (Auto) 0 (0-450) /uL Baso # (Auto) 0 (0-100) /uL Smudge Cells 2+ H Toxic Vacuolation Present H RBC Morphology Normal morphology PT 15.9 H (9.4-12.5) SECONDS INR 1.4 H (0.9-1.3) APTT 30 (25.1-36.5) SECONDS Sodium 133 L (137-145) mmol/L Potassium 5.0 (3.4-5.1) mmol/L Chloride 100 (98-107) mmol/L Carbon Dioxide 26 (22-32) mmol/L BUN 43 H (7-17) mg/dL Creatinine 2.91 H (0.52-1.04) mg/dL Estimated GFR 16 L (>60) mL/min BUN/Creatinine Ratio 14.8 (6-22) Glucose 82 (70-99) mg/dL POC Whole Bld Glucose (70-99) mg/dL Lactate 2.1 (0.7-2.1) mmol/L Calcium 7.6 L (8.4-10.2) mg/dL Total Bilirubin 2.0 H (0.2-1.3) mg/dL AST 141 H (14-36) IU/L ALT 33 (<35) IU/L Alkaline Phosphatase 152 H (38-126) U/L Total Creatine Kinase 414 H (30-135) U/L Troponin I 0.073 H (0.01-0.034) ng/mL NT-Pro-B Natriuret Pep 52504 H (<125) pg/mL Total Protein 7.7 (6.3-8.2) g/dL Albumin 2.5 L (3.5-5.0) g/dL Globulin 5.2 H (1.7-4.1) g/dL Albumin/Globulin Ratio 0.5 L (1.0-2.8) Procalcitonin 0.373 (<0.5) ng/mL Urine RBC None seen (0-5/HPF) Urine WBC 1-5/hpf (0-5/HPF) Ur Squamous Epith Cells None seen (0-5/HPF) Urine Bacteria Many (>30) H (None) Ur Culture Indicated? Specimen cultured Vol Urine Centrifuged Low vol <10ml (spun) A U Opiates 300ng/mL cut Negative (Negative) Ur Oxycodone Screen Positive H (Negative) Urine Methadone Screen Negative (Negative) Ur Barbiturates Screen Negative (Negative) U Tricyclic Antidepress Positive H (Negative) Ur Phencyclidine Scrn Negative (Negative) Ur Amphetamines Screen Negative (Negative) U Methamphetamines Scrn Negative (Negative) Ur MDMA Scrn (Ecstasy) Negative (Negative) U Benzodiazepines Scrn Negative (Negative) Urine Cocaine Screen Negative (Negative) U Marijuana (THC) Screen Negative (Negative) Urine pH Normal (Normal) Urine Specific [place] Normal (Normal) Ethyl Alcohol < 10 (<10) mg/dL Ur Creatinine Normal (Normal) 02/09/25 02/09/25 02/09/25 Range/Units 18:49 19:16 20:22 WBC (4.5-11.0) X10^3/uL RBC (4.0-5.2) X10^6/uL Hgb (12.0-16.0) g/dL Hct (36-46) % MCV (80-100) fL MCH (26-34) PG MCHC (30-36) % RDW (11.6-14.8) % Plt Count (150-400) X10^3/uL Neut % (Auto) (50-75) % Lymph % (Auto) (25-40) % [place] % (Auto) (3-14) % Eos % (Auto) (2-4) % Baso % (Auto) (0-2) % Neut # (Auto) (8886-8209) /uL Lymph # (Auto) (6170-4656) /uL [place] # (Auto) (0-900) /uL Eos # (Auto) (0-450) /uL Baso # (Auto) (0-100) /uL Smudge Cells Toxic Vacuolation RBC Morphology PT (9.4-12.5) SECONDS INR (0.9-1.3) APTT (25.1-36.5) SECONDS Sodium (137-145) mmol/L Potassium (3.4-5.1) mmol/L Chloride (98-107) mmol/L Carbon Dioxide (22-32) mmol/L BUN (7-17) mg/dL Creatinine (0.52-1.04) mg/dL Estimated GFR (>60) mL/min BUN/Creatinine Ratio (6-22) Glucose (70-99) mg/dL POC Whole Bld Glucose 60 L 135 H (70-99) mg/dL Lactate (0.7-2.1) mmol/L Calcium (8.4-10.2) mg/dL Total Bilirubin (0.2-1.3) mg/dL AST (14-36) IU/L ALT (<35) IU/L Alkaline Phosphatase (38-126) U/L Total Creatine Kinase (30-135) U/L Troponin I 0.081 H (0.01-0.034) ng/mL NT-Pro-B Natriuret Pep (<125) pg/mL Total Protein (6.3-8.2) g/dL Albumin (3.5-5.0) g/dL Globulin (1.7-4.1) g/dL Albumin/Globulin Ratio (1.0-2.8) Procalcitonin (<0.5) ng/mL Urine RBC (0-5/HPF) Urine WBC (0-5/HPF) Ur Squamous Epith Cells (0-5/HPF) Urine Bacteria (None) Ur Culture Indicated? Vol Urine Centrifuged U Opiates 300ng/mL cut (Negative) Ur Oxycodone Screen (Negative) Urine Methadone Screen (Negative) Ur Barbiturates Screen (Negative) U Tricyclic Antidepress (Negative) Ur Phencyclidine Scrn (Negative) Ur Amphetamines Screen (Negative) U Methamphetamines Scrn (Negative) Ur MDMA Scrn (Ecstasy) (Negative) U Benzodiazepines Scrn (Negative) Urine Cocaine Screen (Negative) U Marijuana (THC) Screen (Negative) Urine pH (Normal) Urine Specific [place] (Normal) Ethyl Alcohol (<10) mg/dL Ur Creatinine (Normal) 12/21/25 Range/Units 20:50 WBC (4.5-11.0) X10^3/uL RBC (4.0-5.2) X10^6/uL Hgb (12.0-16.0) g/dL Hct (36-46) % MCV (80-100) fL MCH (26-34) PG MCHC (30-36) % RDW (11.6-14.8) % Plt Count (150-400) X10^3/uL Neut % (Auto) (50-75) % Lymph % (Auto) (25-40) % [place] % (Auto) (3-14) % Eos % (Auto) (2-4) % Baso % (Auto) (0-2) % Neut # (Auto) (4348-6288) /uL Lymph # (Auto) (8713-5942) /uL [place] # (Auto) (0-900) /uL Eos # (Auto) (0-450) /uL Baso # (Auto) (0-100) /uL Smudge Cells Toxic Vacuolation RBC Morphology PT (9.4-12.5) SECONDS INR (0.9-1.3) APTT (25.1-36.5) SECONDS Sodium (137-145) mmol/L Potassium (3.4-5.1) mmol/L Chloride (98-107) mmol/L Carbon Dioxide (22-32) mmol/L BUN (7-17) mg/dL Creatinine (0.52-1.04) mg/dL Estimated GFR (>60) mL/min BUN/Creatinine Ratio (6-22) Glucose (70-99) mg/dL POC Whole Bld Glucose (70-99) mg/dL Lactate (0.7-2.1) mmol/L Calcium (8.4-10.2) mg/dL Total Bilirubin (0.2-1.3) mg/dL AST (14-36) IU/L ALT (<35) IU/L Alkaline Phosphatase (38-126) U/L Total Creatine Kinase (30-135) U/L Troponin I 0.093 H (0.01-0.034) ng/mL NT-Pro-B Natriuret Pep (<125) pg/mL Total Protein (6.3-8.2) g/dL Albumin (3.5-5.0) g/dL Globulin (1.7-4.1) g/dL Albumin/Globulin Ratio (1.0-2.8) Procalcitonin (<0.5) ng/mL Urine RBC (0-5/HPF) Urine WBC (0-5/HPF) Ur Squamous Epith Cells (0-5/HPF) Urine Bacteria (None) Ur Culture Indicated? Vol Urine Centrifuged U Opiates 300ng/mL cut (Negative) Ur Oxycodone Screen (Negative) Urine Methadone Screen (Negative) Ur Barbiturates Screen (Negative) U Tricyclic Antidepress (Negative) Ur Phencyclidine Scrn (Negative) Ur Amphetamines Screen (Negative) U Methamphetamines Scrn (Negative) Ur MDMA Scrn (Ecstasy) (Negative) U Benzodiazepines Scrn (Negative) Urine Cocaine Screen (Negative) U Marijuana (THC) Screen (Negative) Urine pH (Normal) Urine Specific [place] (Normal) Ethyl Alcohol (<10) mg/dL Ur Creatinine (Normal) Point of Care Testing Glucose POC 135 MDM Narrative Medical decision making narrative: All lab work, vital signs, nurse triage note, medication list, previous ER visits, and all imaging studies reviewed. CT head showed no acute process. CTA showed no pulmonary embolism small left-sided pleural effusion and trace right-sided pleural effusion. Generalized body wall subcutaneous edema. Within upper abdomen there is jckn-ap-bbhfywop ascites. WBC 6.2 hemoglobin 10.9 platelets 154 INR 1.4 sodium 133 potassium 5 point chloride 100 CO2 26 BUN 43 creatinine 2.91 glucose 82 acid 2.1 T bili 2.0 AST 141 phos 152 CK 414 Troponin 1st set 0.073 BNp 26,700. Procalcitonin 0.373 urine shows many bacteria. Patient given LR 1 L bolus x2 light of patient being hypotensive 80/50s with signs of overt overload started on levophed drip. Differential diagnosis STEMI NSTEMI CHF NBA Sepsis Hemorrhage. Case d/w ok to titrate up Levophed at this time and if needed phenylephrine for pressure support and to hold off on dobutamine. 2nd set trop pending and pt s/o at shift change pending final disposition. Considering that the patient needs ICU care and still having trouble maintaining her blood pressure with the Levophed, it was determined that the patient be transferred to another facility. Patient ultimately accepted at [place] by selvage machine operator Dr. Eastman. Patient will also need a balance between fluid overload and blood pressure control. She may even need to potentially be dialyzed in the future. Discharge Plan Departure Patient Disposition: [facility] Clinical Impression: Sepsis Qualifiers: Sepsis type: sepsis due to unspecified organism Sepsis acute organ dysfunction status: unspecified Qualified Code(s): A41.9 - Sepsis, unspecified organism Fluid overload Qualifiers: Hypervolemia type: unspecified Qualified Code(s): E87.70 - Fluid overload, unspecified Prescriptions: No Action triamcinolone acetonide 0.025 % ointment 1 anette Topical PRN PRNQty: 0 aspirin [Adult Low Dose Aspirin] 81 mg tablet,delayed release (DR/EC) 81 mg PO DAILY atenolol 100 mg tablet 100 mg PO DAILY atorvastatin 40 mg tablet 40 mg PO BEDTIME isosorbide mononitrate 60 mg tablet extended release 24 hr 60 mg PO DAILY oxycodone-acetaminophen 5-325 mg tablet 1 tab PO TID trazodone 50 mg tablet 50 mg PO BEDTIME duloxetine 30 mg capsule,delayed release(DR/EC) 30 mg PO DAILY hydralazine 25 mg tablet 25 mg PO .PRN omeprazole 20 mg capsule,delayed release(DR/EC) 20 mg PO DAILY loratadine 10 mg tablet 10 mg PO DAILY Patient Comments: TAKE 1 TABLET BY MOUTH EVERY DAY NEEDED FOR ALLERGIES venlafaxine 75 mg capsule,extended release 24hr 75 mg PO DAILY gabapentin 600 mg tablet 600 mg PO .COMPLEX Qty: 90 2RF Rx Instructions: 600 mg PO 1-2 PO Tid to begin at HS and titrate to nerve pain relief; diazepam [Valium] 10 mg tablet 10 mg PO .COMPLEX MDD 3 tabs PRN (Reason: 1-2 prior to MRI and for possible steroid flare) Qty: 10 0RF Rx Instructions: 10 mg PO PRN; furosemide [Lasix] 20 mg tablet 10 mg PO QAM gabapentin 300 mg capsule 300 mg PO .COMPLEX Qty: 90 2RF Rx Instructions: 1-2 PO Tid to begin at HS and titrate to pain relief Referrals: Kaycee Pierce PA-C [Primary Care Provider, Medical]
--- NOTE | 2025-02-09 15:52 | DI.CT.S_ITS ---
PROCEDURE: CT HEAD/BRAIN WO CON INDICATIONS: ams TECHNIQUE: Noncontrast 4.5 mm thick angled axial sections acquired from the foramen magnum to the vertex, with coronal and sagittal reformats. For radiation dose reduction, the following was used: automated exposure control, adjustment of mA and/or kV according to patient size. COMPARISON: [facility], CR, XR CHEST 1V, 02/09/2025, 15:48. [facility], CT, CT ANGIO CHEST PE PROTOCOL, 02/09/2025, 15:55. FINDINGS: Image quality: Diagnostic. CSF spaces: Basal cisterns are patent. No extra-axial fluid collections. The ventricles are symmetric in size and shape. Brain: No intracranial bleeds or mass effect. There is cerebral volume loss, with resultant ventricular and sulcal prominence. There are periventricular and deep white matter chronic small vessel ischemic changes. There is intracranial internal carotid artery atherosclerosis. Skull and face: Calvarium and visualized facial bones appear intact, without suspicious lesions. Incidental note is made of hyperostosis frontalis. This is not considered to be pathologic in a woman of this age. Sinuses: Visualized sinuses and mastoids are clear. IMPRESSION: No imaging explanation is found for this patient's presenting symptoms. Dictated by: Joseph Mncamara M.D. on 02/09/2025 at 15:38 Approved by: Joseph Mcnamara M.D. on 02/09/2025 at 15:39
[2025-02-09] MEDS: LACTATED RINGERS 1,000 ML 1000 ML IV (16:14)
[2025-02-09 16:20] LABS: Hematocrit 32.6 % (36-46); Hemoglobin 10.9 g/dL (12.0-16.0); Lymphocytes Absolute Auto 1200 /uL (1100-4500); Mean Corpuscular HGB Conc 33.3 % (30-36); Mean Corpuscular Hemoglobin 26.5 PG (26-34); Mean Corpuscular Volume 79.6 fL (80-100); Platelet Count 154 X10^3/uL (150-400)
[2025-02-09 16:21] LABS: INR 1.4 (0.9-1.3); Prothrombin Time 15.9 SECONDS (9.4-12.5)
[2025-02-09 16:22] LABS: Lactate (Lactic Acid) 2.1 mmol/L (0.7-2.1)
[2025-02-09 16:24] LABS: Alanine Aminotransferase 33 IU/L (<35); Albumin 2.5 g/dL (3.5-5.0); Albumin Globulin Ratio 0.5 (1.0-2.8); Alkaline Phosphatase 152 U/L (38-126); Blood Urea Nitrogen 43 mg/dL (7-17); Calcium 7.6 mg/dL (8.4-10.2); Carbon Dioxide 26 mmol/L (22-32); Chloride 100 mmol/L (98-107); Creatine Kinase 414 U/L (30-135); Estimated Glomerular Filt Rate 16 mL/min (>60); Ethanol (ETOH) < 10 mg/dL (<10); Globulin 5.2 g/dL (1.7-4.1); Glucose 82 mg/dL (70-99); PTT Partial Thromboplastin Tim 30 SECONDS (25.1-36.5); Sodium 133 mmol/L (137-145); Total Protein 7.7 g/dL (6.3-8.2)
[2025-02-09 16:31] LABS: HEMOLYSIS 180 (0-50)
[2025-02-09] MEDS: cefTRIAXone 2,000 MG in SODIUM CHLORIDE 0.9% 100 ML 200 MG IV (16:31)
[2025-02-09 16:32] LABS: Potassium 5.0 mmol/L (3.4-5.1)
[2025-02-09 16:35] LABS: Add Manual Diff / Slide Review SLIDE REVIEW; Troponin I 0.073 ng/mL (0.01-0.034)
[2025-02-09 16:36] LABS: RBC Morphology Normal Morphology; Smudge Cells 2+; Toxic Vacuolation Present
[2025-02-09 16:40] LABS: Procalcitonin 0.373 ng/mL (<0.5)
[2025-02-09 17:22] LABS: NT-proBNP (BNP-Adult 18+) 26700 pg/mL (<125)
[2025-02-09 17:39] LABS: Reflexed Lactate in 2 Hours Y
[2025-02-09] MEDS: NOREPINEPHRINE BIT/0.9 % NACL 4 MG/250 ML PLAST..BAG 37.5 MG IV (17:50)
[2025-02-09 18:01] LABS: Culture Indicated Urine Specimen Cultured
[2025-02-09 19:17] LABS: UR Morphine/Opiate cutoff 300 Negative (Negative); Ur Specific Gravity Normal (Normal); Urine MDMA Negative (Negative); Urine Methamphetamines Negative (Negative); Urine Tetrahydrocannabinol Negative (Negative); Urine Tricyclic Antidepressant Positive (Negative)
[2025-02-09] MEDS: DEXTROSE 50 % IN WATER 25 GM/50 ML SYRINGE IV (19:20)
[2025-02-09 19:29] LABS: Troponin I 0.081 ng/mL (0.01-0.034)
--- NOTE | 2025-02-09 19:39 | PC.NURSE ---
Addendum entered by Sara Ingram RN 02/09/25 20:35: unable to get picture of groin d/t cream on area, area is noted to be excoriated more on the right than the left Original Note: pt lethargic, confused, levophed infusing in left AC site without s/s infiltration, IV to RAC intact flushes easily, pictures taken of wound to right heel and right groin and uploaded to chart, pt on O2 at 2L NBP, right leg elevated on rolled towel to keep pressure off of heel, marin draining dark kimberly colored urine, pt rolled to left side to relieve pressure on her coccyx d/t pt c/o pain in her butt, resp even and unlabored
--- NOTE | 2025-02-09 20:35 | PC.NURSE ---
pt continues confused asking for the lights to be turned out, explained the lights are out, talking at random about the lights, then asking for her , then will state she can't breathe, when explained to pt that she is breathing okay and getting plenty of oxygen she will state okay and change the subject
--- NOTE | 2025-02-09 20:59 | PC.NURSE ---
marin bag changed to urimeter to monitor hourly outputs
[2025-02-09 21:20] LABS: Troponin I 0.093 ng/mL (0.01-0.034)
--- NOTE | 2025-02-09 21:26 | PC.NURSE ---
pt continues confused, repeating statements and questions. attempts to reorient pt unsuccessful
[2025-02-09] MEDS: NOREPINEPHRINE BIT/0.9 % NACL 4 MG/250 ML PLAST..BAG 113.285 MG IV ×2 (21:34→23:33)
--- NOTE | 2025-02-09 22:12 | PC.NURSE ---
pt resting with eyes closed resp even and unlabored
--- NOTE | 2025-02-09 23:43 | PC.NURSE ---
report given to CCT RN
--- NOTE | 2025-02-09 23:57 | PC.NURSE ---
report called to KIMBERLI Mckeon at [facility] [phone] pt going to [address] [facility] 645
[2025-02-12 07:41] LABS: Acinetobacter calcoa-baumannii Not Detected (Not Detect); Bacteroides fragilis Not Detected (Not Detect); Candida auris Not Detected (Not Detect); Candida glabrata Not Detected (Not Detect); Cryptococcus neoformans/gatti Not Detected (Not Detect); Enterobacterales Not Detected (Not Detect); Enterococcus faecalis Not Detected (Not Detect); Enterococcus faecium Not Detected (Not Detect); Klebsiella aerogenes Not Detected (Not Detect); Proteus species Not Detected (Not Detect); Serratia marcescens Not Detected (Not Detect); Staphylococcus epidermidis Not Detected (Not Detect); Staphylococcus lugdunensis Not Detected (Not Detect); Staphylococcus species Not Detected (Not Detect); Stenotrophomonas maltophilia Not Detected (Not Detect); Streptococcus agalactiae (Gr B Not Detected (Not Detect); Streptococcus pneumonia Not Detected (Not Detect); Streptococcus pyogenes (Gr A) Not Detected (Not Detect); Streptococcus species Not Detected (Not Detect)
== END 2025-02-10 | disposition short-term general hospital (02) ==
PROVIDERS: Family Medicine; Emergency Provider Family Medicine; PCP Physician Assistant
DX: J90 Pleural effusion, not elsewhere classified (principal); E87.0 Hyperosmolality and hypernatremia; A41.9 Sepsis, unspecified organism; E16.2 Hypoglycemia, unspecified; R41.82 Altered mental status, unspecified
CPT/HCPCS: 70450; 71045; 71275; 80053; 80305; 80320; 81015; 82550; 82962; 83605; 83880; 84145; 84484; 85025; 85610; 85730; 87040; 87077; 87086; 87154; 87186; 93005; 93010; 96365; 96375; 99284; 99285; 99291; 99292; J0165; J0696; J7050; J7120; Q9967